=== PATIENT | female | born 1995 | race American Indian/Alaskan Native ===

== ENCOUNTER 2016-12-20 00:54 | Emergency (ER) | payer MEDICAID, OTHER ==
[2016-12-20] MEDS ORDERED: Albuterol/Ipratropium 3.0-0.5 MG/3 ML Neb Soln NEB ONE (01:16)
--- NOTE | 2016-12-20 01:19 | EDM.PDOC ---
ED HPI GENERAL MEDICAL PROBLEM - General Chief Complaint: Respiratory Problem Stated Complaint: CHEST PAIN, DIFFICULTY BREATHING Time Seen by Provider: 12/20/16 01:17 Source of Information: Reports: Patient History Limitations: Reports: No Limitations - History of Present Illness INITIAL COMMENTS - FREE TEXT/NARRATIVE: coughing since last week, saw PMD @ clinic given z-tia but not chest hurts to cough & deep breath. denies asthma. - Related Data Allergies Allergy/AdvReac Type Severity Reaction Status Date / Time diphenhydramine HCl Allergy Cannot Verified 05/07/16 03:07 [From Benadryl] Remember Penicillins Allergy Shortness Verified 05/07/16 03:07 of Breath Home Meds: Home Meds Ferrous Sulfate 325 mg PO TID 04/12/16 [History] Vit W-Ca,Fe,FA(<1 mg) [ Vitamins] 1 each PO DAILY 04/12/16 [ History] Past Medical History - Past Health History Medical/Surgical History: Denies Medical/Surgical History Genitourinary History: Reports: Other (See Below) Other Genitourinary History: UTI in [facility] SPECIALIST History: Reports: , Spontaneous Neurological History: Reports: None Psychiatric History: Reports: Addiction, Anxiety, Depression, Emotional Problems , Suicidal Ideation Endocrine/Metabolic History: Reports: Other (See Below) Other Endocrine/Metabolic History: abnormal TSH in Hematologic History: Reports: Anemia Immunologic History: Reports: None Oncologic (Cancer) History: Reports: None Dermatologic History: Reports: None - Infectious Disease History Infectious Disease History: Reports: Chicken Pox - Past Surgical History Female Surgical History: Reports: D&C Social & Family History - Family History Family Medical History: Noncontributory - Tobacco Use Smoking Status *Q: Never Smoker Second Hand Smoke Exposure: No - Caffeine Use Caffeine Use: Reports: Soda - Alcohol Use Days Per Week of Alcohol Use: 0 Number of Drinks Per Day: 1 Total Drinks Per Week: 0 - Recreational Drug Use Recreational Drug Use: No Recreational Drug Type: Reports: Marijuana/Hashish Recreational Drug Use Frequency: Rarely - Living Situation & Occupation Living situation: Reports: with Family Occupation: Employed ED ROS GENERAL - Review of Systems Review Of Systems: ROS reveals no pertinent complaints other than HPI. ED EXAM, GENERAL - Physical Exam Exam: See Below Exam Limited By: No Limitations General Appearance: Alert, WD/WN, Mild Distress, Other (distraught, episodic cough spasm) Ears: Hearing Grossly Normal Throat/Mouth: Normal Voice, No Airway Compromise Head: Atraumatic Neck: Non-Tender, Full Range of Motion Respiratory/Chest: No Respiratory Distress, No Accessory Muscle Use, Rhonchi, Wheezing. No: Retractions, Splinting Cardiovascular: Regular Rate, Rhythm GI/Abdominal: Soft, Non-Tender Neurological: Alert, Oriented, Normal Cognition, Normal Gait, No Motor/Sensory Deficits Psychiatric: Flat Affect Skin Exam: Warm, Dry Lymphatic: No Adenopathy Course - Vital Signs Last Recorded V/S: Last Vital Signs Temp 36.4 C 12/20/16 01:13 Pulse 85 12/20/16 01:13 Resp 16 12/20/16 01:13 BP 120/68 12/20/16 01:13 Pulse Ox 99 12/20/16 01:13 - Orders/Labs/Meds Orders: Active Orders 24 hr Category Date Time Status RT Aerosol Therapy [RC] ASDIRECTED Care 12/20/16 01:16 Active Meds: Medications Discontinued Medications Generic Name Dose Route Start Last Admin Trade Name Freq PRN Reason Stop Dose Admin Albuterol/Ipratropium 3 ml 12/20/16 01:16 12/20/16 01:23 Duoneb 3.0-0.5 Mg/3 Ml NEB 12/20/16 01:17 3 ml ONETIME ONE Administration - Re-Assessments/Exams Free Text/Narrative Re-Assessment/Exam: 12/20/16 02:07 s/p duoneb=much better. Departure - Departure Time of Disposition: 02:07 Disposition: Home, Self-Care 01 Condition: Good Clinical Impression: Bronchospasm with bronchitis, acute - Discharge Information Instructions: Bronchospasm, Adult, [id number] Forms: ED Department Discharge Additional Instructions: 1) use neb treatment 3 times daily for wheezing 2) drink lots of liquids 3) don't sleep flat at night 4) follow up at clinic or recheck if there is any gale eor concern rx given; albuterol 2.5mg solution tid prn wheezing x 1box - My Orders Last 24 Hours: My Active Orders 12/20/16 01:16 RT Aerosol Therapy [RC] ASDIRECTED - Assessment/Plan Last 24 Hours: My Active Orders 12/20/16 01:16 RT Aerosol Therapy [RC] ASDIRECTED
[2016-12-20 01:25] VITALS: BP 120/68
[2016-12-20] MEDS ORDERED: Albuterol 0.083% 2.5 MG/3 ML Neb Soln ONE (02:15)
[2016-12-20] MEDS ORDERED: Albuterol 0.083% 2.5 MG/3 ML Neb Soln INH ONE (02:15)
== END 2016-12-20 02:29 | disposition home or self-care (01) ==
LOC: DL.ED 00:54
DX: J20.9 Acute bronchitis, unspecified (principal); D64.9 Anemia, unspecified; Z88.0 Allergy status to penicillin; Z88.8 Allergy status to other drugs, medicaments and biological substances; Z79.899 Other long term (current) drug therapy
CPT/HCPCS: 94640; 99283; J7620-GY

== ENCOUNTER 2017-04-14 19:07 | Observation (INO) | payer MEDICAID, OTHER ==
[2017-04-14] MEDS ORDERED: Acetaminophen 325 MG Tab PO PRN (20:48)
[2017-04-14] MEDS ORDERED: Ondansetron 4 MG/2 ML SDV IVPUSH PRN (20:48)
[2017-04-14] MEDS ORDERED: Sodium Chloride 0.9% 10 ML Syringe FLUSH PRN (20:48)
[2017-04-14] MEDS ORDERED: hydrOXYzine HCl 25 MG Tab PO ONE (20:51)
[2017-04-14] MEDS ORDERED: Betamethasone Acetate/Betamethasone Sod Phosphate 30 MG/5 ML MDV IM SCH (21:00)
[2017-04-14] MEDS ORDERED: Sodium Chloride 0.9% 1,000 ML IV SCH (21:00)
--- NOTE | 2017-04-14 21:01 | PCM.LDHP ---
L&D History of Present Illness - General Date of Service: 04/14/17 Admit Problem/Dx: Patient Status Order with Admit Dx/Problem 04/14/17 20:48 Patient Status [ADT] Routine Admission Diagnosis/Problem Admission Diagnosis/Problem Source of Information: Patient History Limitations: Reports: No Limitations - History of Present Illness Introduction:: 21-year-old at 31w3d presents to L&D by ambulance for vomiting and contractions every 7 minutes. She was feeling well until today. No fevers or chills. No diarrhea. She had an episode of emesis when picked up by EMS and again since admission. She complains of abdominal pain and states that the bands for TOCO and FHT hurt her abdomen. FHT has been reassuring. TOCO shows rare contractions with irritability. - Related Data Allergies/Adverse Reactions: Allergies Allergy/AdvReac Type Severity Reaction Status Date / Time diphenhydramine HCl Allergy Cannot Verified 05/07/16 03:07 [From Benadryl] Remember Penicillins Allergy Shortness Verified 05/07/16 03:07 of Breath Home Medications: Home Meds Ferrous Sulfate 325 mg PO TID 04/12/16 [History] Vit W-Ca,Fe,FA(<1 mg) [ Vitamins] 1 each PO DAILY 04/12/16 [ History] Past Medical History - Past Health History Medical/Surgical History: Denies Medical/Surgical History Genitourinary History: Reports: Other (See Below) Other Genitourinary History: UTI in [facility] ATT[facility] History: Reports: , Spontaneous Neurological History: Reports: None Psychiatric History: Reports: Addiction, Anxiety, Depression, Emotional Problems , Suicidal Ideation Endocrine/Metabolic History: Reports: Other (See Below) Other Endocrine/Metabolic History: abnormal TSH in Hematologic History: Reports: Anemia Immunologic History: Reports: None Oncologic (Cancer) History: Reports: None Dermatologic History: Reports: None - Infectious Disease History Infectious Disease History: Reports: Chicken Pox - Past Surgical History Female Surgical History: Reports: D&C Social & Family History - Family History Family Medical History: Noncontributory - Tobacco Use Smoking Status *Q: Never Smoker Second Hand Smoke Exposure: No - Caffeine Use Caffeine Use: Reports: Soda - Alcohol Use Days Per Week of Alcohol Use: 0 Number of Drinks Per Day: 1 Total Drinks Per Week: 0 - Recreational Drug Use Recreational Drug Use: No Recreational Drug Type: Reports: Marijuana/Hashish Recreational Drug Use Frequency: Rarely - Living Situation & Occupation Living situation: Reports: with Family Occupation: Employed H&P Review of Systems - Review of Systems: Review Of Systems: See Below General: Reports: Weakness HEENT: Reports: No Symptoms Pulmonary: Reports: No Symptoms Cardiovascular: Reports: No Symptoms Gastrointestinal: Reports: Nausea, Vomiting Genitourinary: Reports: No Symptoms Musculoskeletal: Reports: No Symptoms Skin: Reports: No Symptoms Psychiatric: Reports: No Symptoms L&D Exam - Exam Exam: See Below - OB Specific Contraction Intensity: Irritability (Rare contraction (3 in 2 hours)) Movement: Active Heart Tones: Present Heart Tones per Min: 135 Heart Rate (FHR) Variability: Moderate (6-25 bmp) Presentation: Vertex - Meneses Score Meneses Score Cervix Position: Posterior Meneses Score Consistency: Soft Meneses Score Effacement: 51-70% Meneses Score Dilation: 1-2 cm Meneses Score Infant's Station: -2 Meneses Score Total: 6 - Exam General: Alert, Oriented Lungs: Clear to Auscultation, Normal Respiratory Effort Cardiovascular: Regular Rate, Regular Rhythm GI/Abdominal Exam: Normal Bowel Sounds, Tender (Diffuse tenderness). No: Guarding, Rigid, Rebound Genitourinary: Normal external exam, Other (FFN obtained) - Patient Data Lab Results Last 24 hrs: Laboratory Results - last 24 hr 04/14/17 04/14/17 Range/Units 19:25 19:50 Urine Color Dark yellow (YELLOW) Urine Appearance Turbid (CLEAR) Urine pH 7.5 (5.0-9.0) Ur Specific [place] 1.020 (1.005-1.030) Urine Protein Negative (NEGATIVE) Urine Glucose (UA) Negative (NEGATIVE) Urine Ketones 40 H (NEGATIVE) Urine Occult Blood Negative (NEGATIVE) Urine Nitrite Negative (NEGATIVE) Urine Bilirubin Negative (NEGATIVE) Urine Urobilinogen 0.2 (0.2-1.0) mg/dL Ur Leukocyte Esterase Negative (NEGATIVE) Urine RBC 0-5 /HPF Urine WBC 0-5 (0-5/HPF) /HPF Ur Epithelial Cells Few /HPF Amorphous Sediment Many H (0/HPF) /HPF Urine Bacteria Few (0-FEW/HPF) /HPF Membrane Rupture Negative (NEG) Rowdy Results Last 24 hrs: Microbiology 10/17/17 19:25 Wet Prep - Final Vagina - Problem List (1) SNOMED Code(s): 79674961 ICD Code: Z34.90 - ENCNTR FOR SUPRVSN OF NORMAL , UNSP, UNSP TRIMESTER Status: Acute Current Visit: Yes (2) Abdominal pain affecting SNOMED Code(s): 322023948 ICD Code: O26.899 - OTH RELATED CONDITIONS, UNSPECIFIED TRIMESTER; R10.9 - UNSPECIFIED ABDOMINAL PAIN Status: Acute Current Visit: Yes Problem List Initiated/Reviewed/Updated: Yes Orders Last 24hrs: Active Orders 24 hr Category Date Time Status Patient Status [ADT] Routine ADT 04/14/17 20:48 Ordered Monitoring [RC] INTERMITTENT Care 04/14/17 20:48 Ordered OB Check [OM.PC] Click To Edit Care 04/14/17 19:19 Ordered Peripheral IV Care [RC] . DIRECTED Care 04/14/17 20:51 Ordered Up ad Sylvai [RC] ASDIRECTED Care 04/14/17 20:49 Ordered Vital Signs [RC] PER UNIT ROUTINE Care 04/14/17 20:48 Ordered Regular Diet [DIET] Diet 04/15/17 Breakfast Ordered FIBRONECTIN Stat Lab 04/14/17 20:52 Ordered Acetaminophen [Tylenol] Med 04/14/17 20:48 Ordered 650 mg PO Q4H PRN Betamet Acet/Betamet Na Phos [Celestone Soluspan 6 MG/ Med 04/14/17 21:00 Ordered ML] 12 mg IM DAILY Ondansetron [Zofran] Med 04/14/17 20:48 Ordered 4 mg IVPUSH Q4H PRN Sodium Chloride 0.9% @ 125 MLS/HR (1000ml) Med 04/14/17 21:00 Ordered Sodium Chloride 0.9% [Normal Saline] 1,000 ml IV ASDIRECTED Sodium Chloride 0.9% [Saline Flush] Med 04/14/17 20:48 Ordered 10 ml FLUSH ASDIRECTED PRN hydrOXYzine HCl [Atarax] Med 04/14/17 20:51 Once 25 mg PO ONETIME ONE Heart Monitor External [WOMSER] Per Unit Routine Oth 04/14/17 19:19 Ordered Peripheral IV Insertion Adult [OM.PC] Urgent Oth 04/14/17 20:48 Ordered Resuscitation Status Routine Resus Stat 04/14/17 20:48 Ordered Medication Orders Acetaminophen (Tylenol) 650 mg PO Q4H PRN PRN Reason: Pain (mild 1-3) Betamethasone Acet/Betameth SodPhos (Celestone Soluspan 6 Mg/Ml) 12 mg IM DAILY LILLIAN Stop: 04/15/17 09:01 Hydroxyzine HCl (Atarax) 25 mg PO ONETIME ONE Stop: 04/14/17 20:52 Sodium Chloride (Normal Saline) 1,000 mls @ 125 mls/hr IV ASDIRECTED LILLIAN Ondansetron HCl (Zofran) 4 mg IVPUSH Q4H PRN PRN Reason: Nausea/Vomiting Sodium Chloride (Saline Flush) 10 ml FLUSH ASDIRECTED PRN PRN Reason: Keep Vein Open Assessment/Plan Comment:: As patient noted to be 2.5 cm dilated on cervical exam, will admit for observation and monitor overnight. Will given IV fluids as patient has significant ketones in her urine. Will also give a dose of Vistaril to help her rest. FFN was collected and is pending. Her symptoms could be caused by viral gastroenteritis; however, her cervical dilation does warrant observation for labor. She will also receive a dose of betamethasone now and another tomorrow for lung maturity. Will reassess cervix later tonight for change. If cervical change is noted, we will start magnesium for neuroprotection. Dr. Carmichael is the patient's OB provider and can assess her tomorrow morning if she does not progress to labor. Kaylie Ahuja MD
[2017-04-14] MEDS ORDERED: Magnesium Sulfate/Water 20 GM/500 ML BAG IV SCH (23:00)
[2017-04-14] MEDS ORDERED: Magnesium Sulfate/Water 2 GM in Premix Bag 1 BAG IV ONE (23:02)
[2017-04-14] MEDS ORDERED: Magnesium Sulfate/Water 4 GM in Premix Bag 1 BAG IV ONE (23:02)
--- NOTE | 2017-04-14 23:17 | PCM.DCSUM1 ---
Discharge Summary - Hospital Course Free Text/Narrative:: 21-year-old admitted for abdominal pain and possible contractions. She has been monitored on the floor for about 4 hours. Over 2 hours, her cervix has dilated from 2.5 to 3+ and has become more anterior. She also continues to have abdominal pain. Contractions are not tracing well on TOCO - Discharge Data Discharge Date: 04/14/17 Discharge Disposition: DC/Tfer to Acute Hospital 02 Condition: Good - Discharge Diagnosis/Problem(s) (1) SNOMED Code(s): 98682644 ICD Code: Z34.90 - ENCNTR FOR SUPRVSN OF NORMAL , UNSP, UNSP TRIMESTER Status: Acute Current Visit: Yes Qualifiers: Weeks of gestation: 31 weeks Qualified Code(s): Z3A.31 - 31 weeks gestation of (2) Abdominal pain affecting SNOMED Code(s): 064667113 ICD Code: O26.899 - OTH RELATED CONDITIONS, UNSPECIFIED TRIMESTER; R10.9 - UNSPECIFIED ABDOMINAL PAIN Status: Acute Current Visit: Yes - Discharge Plan Home Medications: Home Meds Ferrous Sulfate 325 mg PO TID 04/12/16 [History] Vit W-Ca,Fe,FA(<1 mg) [ Vitamins] 1 each PO DAILY 04/12/16 [ History] - Discharge Summary/Plan Comment DC Time >30 min.: Yes Discharge Summary/Plan Comment: Due to early labor, patient will be transferred to [facility] in [place]. Accepting physician will be Dr. Mckinley. She has received 1 dose of betamethasone. She is currently receiving a 4 gram loading dose of magnesium for neuroprotection and will be started on 1 gram/hour after completion of the bolus. Patient was advised that if her labor stops, she will likely be discharged home in the next few days; however, there is a chance she could deliver, which is why transfer is necessary. Patient and her significant other voiced their understanding, and all questions were answered. Kaylie Ahuja MD - General Info Date of Service: 04/14/17 Subjective Update: 21-year-old admitted for abdominal pain and possible contractions. She has been monitored on the floor for about 4 hours. Over 2 hours, her cervix has dilated from 2.5 to 3+ and has become more anterior. She also continues to have abdominal pain. Contractions are not tracing well on TOCO. FFN was positive. FHT has been reactive. Urinalysis and wet prep were negative. Amnisure was negative. Patient has been receiving IV fluids at 125 ml/hr since 2099. - Review of Systems General: Reports: Fatigue HEENT: Reports: No Symptoms Pulmonary: Reports: No Symptoms Cardiovascular: Reports: No Symptoms Gastrointestinal: Reports: Abdominal Pain, Nausea Genitourinary: Reports: No Symptoms Musculoskeletal: Reports: No Symptoms Skin: Reports: No Symptoms - Patient Data Vitals - Most Recent: Last Vital Signs Temp 36.2 C 04/14/17 19:12 Pulse 69 04/14/17 19:12 Resp 20 04/14/17 19:12 BP 105/61 04/14/17 19:12 Pulse Ox Weight - Most Recent: 91.172 kg Lab Results - Last 24 hrs: Laboratory Results - last 24 hr 04/14/17 04/14/17 04/14/17 Range/Units 19:25 19:50 20:45 Urine Color Dark yellow (YELLOW) Urine Appearance Turbid (CLEAR) Urine pH 7.5 (5.0-9.0) Ur Specific [place] 1.020 (1.005-1.030) Urine Protein Negative (NEGATIVE) Urine Glucose (UA) Negative (NEGATIVE) Urine Ketones 40 H (NEGATIVE) Urine Occult Blood Negative (NEGATIVE) Urine Nitrite Negative (NEGATIVE) Urine Bilirubin Negative (NEGATIVE) Urine Urobilinogen 0.2 (0.2-1.0) mg/dL Ur Leukocyte Esterase Negative (NEGATIVE) Urine RBC 0-5 /HPF Urine WBC 0-5 (0-5/HPF) /HPF Ur Epithelial Cells Few /HPF Amorphous Sediment Many H (0/HPF) /HPF Urine Bacteria Few (0-FEW/HPF) /HPF Membrane Rupture Negative (NEG) Fibronectin Positive REKHA Results - Last 24 hrs: Microbiology 04/14/17 19:25 Wet Prep - Final Vagina Med Orders - Current: Current Medications Acetaminophen (Tylenol) 650 mg PO Q4H PRN PRN Reason: Pain (mild 1-3) Last Admin: 04/14/17 21:26 Dose: 650 mg Betamethasone Acet/Betameth SodPhos (Celestone Soluspan 6 Mg/Ml) 12 mg IM DAILY @2100 LILLIAN Stop: 04/15/17 21:01 Last Admin: 04/14/17 21:27 Dose: 12 mg Sodium Chloride (Normal Saline) 1,000 mls @ 125 mls/hr IV ASDIRECTED LILLIAN Last Admin: 04/14/17 21:36 Dose: 125 mls/hr Magnesium Sulfate 4 gm/ Premix 100 mls @ 200 mls/hr IV ONETIME ONE Stop: 04/14/17 23:31 Magnesium Sulfate (Magnesium Sulfate 20 Gm In Water 500 Ml) 20 gm in 500 mls @ 25 mls/hr IV .Q20H LILLIAN Ondansetron HCl (Zofran) 4 mg IVPUSH Q4H PRN PRN Reason: Nausea/Vomiting Sodium Chloride (Saline Flush) 10 ml FLUSH ASDIRECTED PRN PRN Reason: Keep Vein Open Discontinued Medications Hydroxyzine HCl (Atarax) 25 mg PO ONETIME ONE Stop: 04/14/17 20:52 Last Admin: 04/14/17 21:27 Dose: 25 mg - Exam General: Reports: Alert, Oriented, Mild Distress (More due to emotions than physical distress) Lungs: Reports: Clear to Auscultation, Normal Respiratory Effort Cardiovascular: Reports: Regular Rate, Regular Rhythm, No Murmurs Extremities: No Pedal Edema Skin: Reports: Warm, Dry, Intact *Q Meaningful Use (DIS) - VTE *Q VTE Criteria *Q: - Stroke *Q Stroke Criteria *Q: - AMI *Q AMI Criteria *Q:
[2017-04-15 00:09] VITALS: BP 101/58
== END 2017-04-14 23:46 ==
LOC: DL.OBCHECK 19:07 → DL.OB 20:48
PROVIDERS: ADMIT Family Medicine; ATTEND Family Medicine
DX: O26.899 Other specified pregnancy related conditions, unspecified trimester (principal); F41.9 Anxiety disorder, unspecified; F32.9 Major depressive disorder, single episode, unspecified; Z3A.31 31 weeks gestation of pregnancy; Z79.899 Other long term (current) drug therapy; Z88.0 Allergy status to penicillin; Z88.8 Allergy status to other drugs, medicaments and biological substances; Z98.890 Other specified postprocedural states
CPT/HCPCS: 81001; 82731; 84112; 87210; A9270; J0702; J3475; J7030; 96365; 96372; G0378

== ENCOUNTER 2017-05-11 05:35 | Inpatient (IN) | payer MEDICAID, OTHER ==
[2017-05-11] MEDS ORDERED: Methylergonovine 0.2 MG/1 ML Amp IM PRN (06:16)
[2017-05-11] MEDS ORDERED: Acetaminophen 325 MG Tab PO PRN (06:16)
[2017-05-11] MEDS ORDERED: Lactated Ringers 500 ML IV ONE (06:16)
[2017-05-11] MEDS ORDERED: Carboprost Tromethamine 250 MCG/1 ML Amp IM PRN (06:16)
[2017-05-11] MEDS ORDERED: Sodium Chloride 0.9% 10 ML Syringe FLUSH PRN ×2 (06:16→18:41)
[2017-05-11] MEDS ORDERED: Lidocaine 1% 30 ML SDV INJECT PRN (06:16)
[2017-05-11] MEDS ORDERED: Misoprostol 400 MCG (4 X 100 MCG TAB) RECTAL PRN (06:16)
[2017-05-11] MEDS: Lactated Ringers 1,000 ML IV SCH ×4 (06:34→16:58)
[2017-05-11] MEDS ORDERED: fentaNYL 100 MCG/2 ML SDV IVPUSH ONE ×2 (06:55→10:30)
--- NOTE | 2017-05-11 10:00 | PN ---
DATE: 05/11/2017 SUBJECTIVE: The patient has been requesting something for pain. Her pain has been increasing. She is breathing through her contractions. OBJECTIVE: heart tones in the 120s range, felt to be reassuring and reactive. Tocometer reveals contractions every 4 minutes. Vaginal exam reveals her to be 4.5 cm, 75% effaced, -1 station, vertex suspected, bag of water felt. ASSESSMENT AND PLAN: Intrauterine at 35 and 2/7 weeks with active labor. Not a transfer candidate. Requesting something for pain. We will give her fentanyl at this point in time and then consider intrathecal thereafter. I did discuss with the patient making call to the NICU following baby, after baby is delivered and if need be transfer. I did discuss the case with Dr. Holman in [place], and we will follow closely. The patient understands and agrees with the above treatment plan. [facility] /[id number]
--- NOTE | 2017-05-11 10:03 | HP ---
PATIENT IDENTIFICATION: Nima Yao is a 21-year-old, G3, P1-0-1-1, intrauterine 35 and 2/7 weeks by 9 and 6/7 week ultrasound that presents with contractions. HISTORY OF PRESENT ILLNESS: The patient states that contractions started about 1:30 in the morning on date of admission. Increasing in frequency and intensity to the point that they are coming every 2 to 5 minutes per patient report, rated 10/10, felt in the lower abdomen, radiating to the back, and getting worse over time. Tylenol did not seem to help with this pain. Associated with this was some vaginal leaking that she states started around 2 a.m., described as mucoid- type discharge. No spotting or bleeding associated with this. She has had good movement. To put this in context, she was in [facility] in March for threatened premature labor. She was not found to be in labor. GBS was done at that point in time which was within 5 weeks and it was negative. Records were called for, reviewed as below, and supplemented by the patient history. OBSTETRIC HISTORY: 1. On 05/25/2016; 40 and 4/7 weeks, delivered female, spontaneous vaginal delivery, weighing 3790 g. 2. Spontaneous AB 07/05/2015, at 10 and 4/7 weeks. ANTEPARTUM LABS: ABO blood type A positive, negative antibody. Rubella immune. Syphilis antibody is nonreactive. Negative hepatitis B surface antigen, hep C, HIV, GC, and Chlamydia. Wet prep was remarkable for clue cells. One-hour GTT was elevated at 146, three-hour test was negative for gestational diabetes mellitus. She has had a history of hemoglobin 10.6, and she was GBS negative on 04/15/2017. ALLERGIES: Penicillins make her throat close up and swell. She also has a Benadryl allergy with unknown reaction. MEDICATIONS: vitamins. PAST MEDICAL/PAST SURGICAL HISTORY: Remarkable for having a D and C in the past. Being immune to varicella. FAMILY HISTORY: Mother had cirrhosis. Negative family history of asthma, arrhythmia, seizures, heart disease, or sudden . SOCIAL HISTORY: Lives in [place] with grandpa and daughter. Denies tobacco, alcohol, or drug use. REVIEW OF SYSTEMS: The patient denies any fever, chills, sweats. She stated that at certain positions sometimes she has to breathe harder with her contractions. Otherwise review of systems fully reviewed and felt to be noncontributory. OBJECTIVE: Appearance: Female, appears her stated age, acting appropriate for age, breathing through contractions, clutching her abdomen in pain, pain seems to be worse at times, but intermittently she has been breathing fast and complaining of pain during this time period. Vital Signs: Reveal a blood pressure of 130/62, heart rate 74, temperature 96.8. Lungs: Clear to auscultation bilaterally. No increased work of breathing. Heart: S1, S2. Regular rate and rhythm. Abdomen: Gravid, Yusuf's indeterminate. Nontender, nondistended. Bowel sounds positive. No other organomegaly, pulsatile masses, or obvious hernias. No rebound, rigidity, or guarding. Suprapubic area with deep palpation, she does describe occasional pain over this area, but is inconsistent with exam. : Sterile speculum exam done. Negative for Nitrazine, pooling and ferning is pending. Wet prep, also done. Vaginal exam thereafter revealed her to be 4+ cm, 75% effaced, -2 station, vertex suspected. heart tones currently baseline around the 120s. Tocometer reveals contractions, 5 to 6 minutes apart currently. ASSESSMENT: 1. Intrauterine at 35 and 2/7 weeks by 9 and 6/7 week ultrasound. 2. Active labor. 3. Not a transfer candidate based on her advancing cervical dilation, contractions, and amount of pain that she is. 4. Group B Streptococcus negative on 04/15/2017, would not need prophylaxis. 5. Penicillin allergy causes her throat to swell. 6. Impaired glucose tolerance. 7. G3, P1-0-1-1. PLAN: I did discuss with patient with her current contractions, advancing cervical dilation, that we will admit her. Start IV fluids. Do her labs for admission and follow clinically and closely. Most likely, we will not intervene at this point in time other than following for maternal and status. I will call the [facility], and I did discuss this with the patient that she is not a transfer candidate and her infant may need to be transferred to higher level care and will heed NICU's advice. The patient understands and agrees the above treatment plan. MOD /[id number]
--- NOTE | 2017-05-11 10:06 | OBOUT ---
DATE: 05/11/2017 DATE AND TIME OF NST: Date: 05/11/2017. Time: 6:45 to 6:58. REASON FOR NST: 1. Intrauterine 35 and 2/7 weeks by approximately 9 week ultrasound. 2. labor. 3. Not a transfer candidate. 4. Advanced cervical dilation. NST INTERPRETATION: During this time period, heart tone baseline is approximately 120 and there are at least two 15 x 15 beat per minute accelerations, making this strip reactive. It is also noted to be reassuring. Tocometer reveals potential of 2 contractions felt by patient. ASSESSMENT: 1. Nonstress test, reactive and reassuring. 2. Tocometer with contractions. PLAN: We will continue to follow closely at this point in time. Please see other dictations for further details. MODL /[id number]
[2017-05-11] MEDS ORDERED: fentaNYL 100 MCG/2 ML SDV ONE ×2 (11:35→18:08)
[2017-05-11] MEDS: Ondansetron 4 MG/2 ML SDV IV PRN ×2 (11:50→18:02)
--- NOTE | 2017-05-11 12:10 | PCM.SN ---
- Free Text/Narrative Note: Intrathecal, sitting position ,sterile and drape. 1 % lidocaine w bicarb for skinwheal to L2 L3 interspace, introducer, 24 ga pencan x 1. Pos CSF, neg heme, neg parasthesia. 1:1000 epi wash, 20 mcg pf sufenta, 30 mcg pf fentanyl, 0.2 ml pf ns and 6 mg of 0.75 % pf bupivacaine injected after CSF aspiration. Pt to L lateral side. Procedure time 1145 to 1210
--- NOTE | 2017-05-11 12:48 | PN ---
DATE: 05/11/2017 SUBJECTIVE: The patient's contractions continued. She received 100 mcg of fentanyl within the last hour, felt in the lower abdomen, breathing through them, writhing in pain when she has them. OBJECTIVE: heart tones in the 120s. Tocometer reveals contractions 1 reading as close as every 4 minutes currently. Vaginal exam reveals her to be 5 cm, 85% effaced, -1 station with bulging bag of water. Vertex suspected. ASSESSMENT/PLAN: Intrauterine at 35 and 2/7 weeks by 9 and 6/7 weeks' ultrasound in active labor. Not a transfer candidate due to her advancing cervical dilation, group B Streptococcus negative status with impaired glucose tolerance in -0-1-1. Did review her chart, she did receive some steroids when she was in [place] last month for her labor. We will continue to follow clinically and closely at this point in time. I did discuss with the patient close consultation with NICU if need be and we will proceed to follow maternal status very closely. She understands and agrees with the above treatment. [facility] /[id number]
[2017-05-11] MEDS ORDERED: Oxytocin/Normal Saline 30 UNIT/500 ML BAG IV SCH (13:30)
--- NOTE | 2017-05-11 14:00 | PN ---
DATE: 05/11/2017 SUBJECTIVE: The patient is comfortable, status post intrathecal. OBJECTIVE: heart tones are difficult to read at times, unsure if there is decelerations or not based on movement and patient moving. Tocometer, difficulty reading contractions as well. heart tones when detected are in the 115 to 120s range. Vaginal exam reveals her to be 5+ cm , 75% to 85% effaced, -1 station with bulging bag of water which was artificially ruptured after discussion with the patient to allow for FSE placement which after copious amounts of clear vaginal fluid leaking, FSE was applied and used. ASSESSMENT AND PLAN: Intrauterine at 35 and 2/7 weeks by 9 and 6/7 weeks ultrasound in active labor, not a transfer candidate, GBS negative status with impaired glucose tolerance, and a -0-1-1 with baby receiving steroids last month, now in active labor with concerns with heart tone tracing, underwent artificial rupture membranes and FSE placement, and we will follow clinically and closely. I did discuss with the patient that we will follow status, and after baby is born to determine NICU need based on current status, but if things change, may need them sooner. The patient understands and agrees with the above treatment and plan. [facility] /[id number]
--- NOTE | 2017-05-11 18:28 | PCM.SN ---
- Free Text/Narrative Note: Intrathecal, sitting position ,sterile and drape. 1 % lidocaine w bicarb for skinwheal to L2 L3 interspace, introducer, 24 ga pencan x 1. Pos CSF, neg heme, neg parasthesia. 1:1000 epi wash, 20 mcg pf sufenta, 30 mcg pf fentanyl, 0.2 ml pf ns and 6 mg of 0.75 % pf bupivacaine injected after CSF aspiration. Pt to L lateral side. Procedure time 1810 to 1835
[2017-05-11] MEDS ORDERED: Benzocaine/Menthol 20%-0.5% Spray 56 GM Canister TOP PRN (18:41)
[2017-05-11] MEDS ORDERED: Oxytocin 10 Units/1 ML SDV IM PRN (18:41)
[2017-05-11] MEDS ORDERED: Simethicone 80 MG Tab.Chew PO PRN (18:41)
[2017-05-11] MEDS ORDERED: Zolpidem 5 MG Tab PO PRN (18:41)
[2017-05-11] MEDS ORDERED: Docusate Sodium 100 MG Cap PO PRN (18:41)
[2017-05-11] MEDS: Ibuprofen 800 MG Tab PO PRN (22:05)
[2017-05-12] MEDS: Ibuprofen 800 MG Tab PO PRN (08:13)
--- NOTE | 2017-05-12 08:35 | DEL ---
DATE: 05/11/2017 PREOPERATIVE DIAGNOSES: 1. Intrauterine at 35 and 2/7 weeks confirmed by 9 and 6/7 weeks' ultrasound. 2. Active labor upon admit. 3. Not a transfer candidate. 4. Group B Streptococcus negative in March 2017. 5. Penicillin allergy causes throat swelling. 6. Impaired glucose tolerance. 7. G3, P1-0-1-1. 8. The patient did receive steroids for threatened premature labor last month. POSTOPERATIVE DIAGNOSES: 1. Intrauterine at 35 and 2/7 weeks confirmed by 9 and 6/7 weeks' ultrasound, delivered. 2. Active labor upon admit. 3. Not a transfer candidate. 4. Group B Streptococcus negative in March 2017. 5. Penicillin allergy causes throat swelling. 6. Impaired glucose tolerance. 7. G3, P1-0-1-1. 8. The patient did receive steroids for threatened premature labor last month. 9. Nuchal cord x1 reduced bluntly with delivery. 10. hemorrhage with an EBL of 500 mL. PROCEDURE PERFORMED: 1. NST. 2. FSE/AROM Pitocin augmentation. 3. Spontaneous vaginal delivery on 05/11/[address] Carmichael. ANESTHESIA/ANALGESIA: The patient did receive two intrathecals in the first stage of labor. ESTIMATED BLOOD LOSS: 500 mL. FINDINGS: Male, scores and weight pending. SUMMARY OF EVENTS: The patient is a 21-year-old, G3, P-1-0-1-1 intrauterine at 35 and 2/7 weeks by 9 and 6/7 week ultrasound, who presents in active labor with advancing cervical dilation, not a transfer candidate. She was GBS negative last month. She was admitted, underwent the above procedures. Did receive an intrathecal in the first stage of labor. Required FSE for further monitoring of the baby with artificial rupture of membranes done at that time. She received a second intrathecal in the first stage of labor. She was subsequently found to be nearly complete. I was called to the room, donned in sterile gown and gloves. Evaluated her, she was found to be complete at a +2 station with the next contraction as she had an urge to push. She pushed and vertex was delivered in a CAMPOS presentation. Nuchal cord x1 was noted and reduced bluntly with delivery. Rest of the infant was delivered without difficulty. Mouth and nares were suctioned. Cord was doubly clamped and cut, and was brought over to team. Then, approximately 10 mL cord blood obtained for labs. Placenta was then delivered with gentle cord traction and fundal massage within 5 minutes with a large henriquez of blood thereafter with a 500 mL estimated blood loss. Pitocin was started. Fundal massage ensued and bleeding significantly decreased. Perineum, vagina, and perirectal areas were examined and noted to have bilateral periurethral abrasions, nonbleeding, non repaired after discussion with the patient. Mother and are currently stable at the time of dictation. [facility] /[id number] MOY
[2017-05-12] MEDS ORDERED: Prenatal Multivitamin with Calcium/Folic Acid/Iron Tab PO SCH (09:00)
[2017-05-12] MEDS ORDERED: fentaNYL 100 MCG/2 ML SDV ITHECAL ONE (15:01)
[2017-05-12 20:32] VITALS: BP 106/59
--- NOTE | 2017-05-13 08:22 | DISCH ---
ADMITTING DIAGNOSES: 1. Intrauterine at 35 and 2/7 weeks confirmed by 9 and 6/7 weeks' ultrasound. 2. Active labor. 3. Not a transfer candidate. 4. Group B Streptococcus negative on 04/15/2017. 5. Allergy to penicillin causes throat swelling. 6. Impaired glucose tolerance. 7. G3, P1-0-1-1. 8. The patient received steroids in March 2017 for threatened premature labor. DISCHARGE DIAGNOSIS: 1. Intrauterine at 35 and 2/7 weeks confirmed by 9 and 6/7 weeks' ultrasound, delivered. 2. Active labor. 3. Not a transfer candidate. 4. Group B Streptococcus negative on 04/15/2017. 5. Allergy to penicillin causes throat swelling. 6. Impaired glucose tolerance. 7. G3, P1-0-1-1. 8. The patient received steroids in March 2017 for threatened premature labor. 9. hemorrhage with EBL of 500 mL. 10.Nuchal cord x1, reduced bluntly at delivery. 11.CAMPOS presentation. 12.Anemia acute blood loss, hemoglobin dropping down to lowest at 10.3, with predelivery hemoglobin being 11.4. PROCEDURE PERFORMED: NST, FSE, artificial rupture membranes, spontaneous vaginal delivery, Pitocin augmentation. HISTORY OF PRESENT ILLNESS: Please see H and P. SUMMARY HOSPITAL COURSE: The patient was admitted on the above date with the above diagnosis, had advancing cervical dilation, not felt to be a transfer candidate due to this. She was subsequently admitted, underwent the above procedures. Did require some Pitocin augmentation. She did receive an FSE as there was difficulty determining heart tones with questionable decelerations at times. Subsequently, she received 2 intrathecals in the first stage of labor. She was found to be complete. I was called to the room and went on to have a spontaneous vaginal delivery yielding a male with scores of 7 and 8, weighing 6 pounds 6 ounce (2880 g). Please see delivery note for further details. EBL was 500 mL. day #1, date of discharge, the patient was tolerating p.o., was ambulating, urinating, passing flatus, requesting discharge to be with her who was transferred to the NICU in [place]. PHYSICAL EXAMINATION: Vital Signs: Temperature 98.2, heart rate 64, blood pressure 87/50, prior to this was 116/62, respiratory rate 16. Lungs: Clear to auscultation bilaterally. Heart: S1 and S2. Regular rate and rhythm. Pelvic: Firm uterus at -1 below the umbilicus. Extremities: Trace pedal edema. No calf pain. LABORATORY DATA: Reveal a white cell count 10.2, hemoglobin 10.3, platelets 256. CONDITION ON DISCHARGE COMPARED TO CONDITION ON ADMISSION: Improved. DISCHARGE INSTRUCTIONS: 1. Diet: As tolerated. 2. Activity: No lifting more than 20 pounds. No sit-ups, straining, and pelvic rest for the next 6 weeks with immediate return to fertility discussed with the patient. 3. Reasons to return or go to the emergency room were discussed with the patient in detail including, but not limited to, temperature greater than 100.4; foul-smelling discharge; red or hot breasts or increased vaginal bleeding DISCHARGE MEDICATIONS: 1. [id number] ibuprofen for pain. 2. vitamins x6 weeks. FOLLOWUP: Six weeks . Discussed with the patient waiting till 24 hours after delivery for discharge time and we will follow clinically and closely. I did discuss with her the closest facility is in [place] where she will be going. She has a male partner with her and he will be with her. She understands and agrees with the above treatment plan. [facility] /[id number]
== END 2017-05-12 19:28 | disposition home or self-care (01) | DRG 774 ==
LOC: DL.OBCHECK 05:35 → DL.OB 06:27 → OBSVTOIN 18:28 → DL.MS 05-12 11:53
PROVIDERS: ADMIT Family Medicine; ATTEND Family Medicine
PROC: 10E0XZZ Delivery of Products of Conception, External Approach (ICD-10-PCS; principal; 2017-05-11)
PROC: 10907ZC Drainage of Amniotic Fluid, Therapeutic from Products of Conception, Via Natural or Artificial Opening (ICD-10-PCS; 2017-05-11)
PROC: 00HU33Z Insertion of Infusion Device into Spinal Canal, Percutaneous Approach (ICD-10-PCS; 2017-05-11)
PROC: 3E0R3BZ Introduction of Anesthetic Agent into Spinal Canal, Percutaneous Approach (ICD-10-PCS; 2017-05-11)
DX: O60.12X0 Preterm labor second trimester with preterm delivery second trimester, not applicable or unspecified (principal); O72.1 Other immediate postpartum hemorrhage; Z37.0 Single live birth; Z3A.35 35 weeks gestation of pregnancy; Z88.0 Allergy status to penicillin; O69.81X0 Labor and delivery complicated by cord around neck, without compression, not applicable or unspecified
CPT/HCPCS: 01967; 36415; 59409; 80305; 82274; 85027; 87210; A9270-GY; J2405; J2590; J3010; J7120

== ENCOUNTER 2017-08-06 22:27 | Emergency (ER) | payer MEDICAID, OTHER ==
[2017-08-06 22:33] VITALS: BP 127/79
--- NOTE | 2017-08-06 22:52 | EDM.PDOC ---
ED HPI GENERAL MEDICAL PROBLEM - General Chief Complaint: Lower Extremity Injury/Pain Stated Complaint: needs XRAY ON KNEE [id number] Time Seen by Provider: 08/06/17 22:39 Source of Information: Reports: Patient History Limitations: Reports: No Limitations - History of Present Illness INITIAL COMMENTS - FREE TEXT/NARRATIVE: Pt presents to the ER with c/o pain in the left knee. She states she fell on the ice in front of her home last night. She states she has not been able to ambulate on the leg, and cannot bend or fully straighten the leg. She states the pain is 6/10 at rest, and 9/10 with movement. Patient denies chances of , states her LMP was the end of June. Onset: Sudden Onset Date: 08/05/17 Location: Reports: Lower Extremity, Left Quality: Reports: Throbbing Severity: Moderate Improves with: Reports: Rest Worsens with: Reports: Movement Associated Symptoms: Reports: No Other Symptoms Left Knee Pain Score (Numeric/FACES): 6 - Related Data Allergies Allergy/AdvReac Type Severity Reaction Status Date / Time diphenhydramine HCl Allergy Cannot Verified 08/06/17 22:33 [From Benadryl] Remember Penicillins Allergy Shortness Verified 08/06/17 22:33 of Breath Home Meds: Home Meds . [No Known Home Meds] 08/06/17 [History] Past Medical History - Past Health History Medical/Surgical History: Denies Medical/Surgical History HEENT History: Reports: None Cardiovascular History: Reports: None Respiratory History: Reports: None Gastrointestinal History: Reports: None Genitourinary History: Reports: Pyelonephritis, Other (See Below) Other Genitourinary History: UTI in [employer] History: Reports: , Spontaneous Musculoskeletal History: Reports: None Neurological History: Reports: None Psychiatric History: Reports: Addiction, Anxiety, Depression, Emotional Problems , Suicidal Ideation Endocrine/Metabolic History: Reports: Other (See Below) Other Endocrine/Metabolic History: abnormal TSH in Hematologic History: Reports: Anemia Immunologic History: Reports: None Oncologic (Cancer) History: Reports: None Dermatologic History: Reports: None - Infectious Disease History Infectious Disease History: Reports: None, Influenza - Past Surgical History Head Surgeries/Procedures: Reports: None Female Surgical History: Reports: D&C Social & Family History - Family History Family Medical History: Noncontributory - Tobacco Use Smoking Status *Q: Never Smoker Used Tobacco, but Quit: No Second Hand Smoke Exposure: No - Caffeine Use Caffeine Use: Reports: Coffee, Soda - Alcohol Use Days Per Week of Alcohol Use: 0 Number of Drinks Per Day: 1 Total Drinks Per Week: 0 - Recreational Drug Use Recreational Drug Use: No Recreational Drug Type: Reports: Marijuana/Hashish Recreational Drug Use Frequency: Rarely - Living Situation & Occupation Living situation: Reports: with Family Occupation: Employed Review of Systems - Review of Systems Review Of Systems: ROS reveals no pertinent complaints other than HPI. ED EXAM, GENERAL - Physical Exam Exam: See Below Exam Limited By: No Limitations General Appearance: Alert, WD/WN, No Apparent Distress Eye Exam: Bilateral Eye: EOMI, Normal Inspection, PERRL Ears: Normal External Exam, Hearing Grossly Normal Nose: Normal Inspection Throat/Mouth: Normal Inspection, Normal Voice, No Airway Compromise Head: Facial Swelling, Facial Tenderness, Other (Swelling and bruising to the left side of the face/forehead and cheek. Pt states this is from a different incident than the fall on the ice and chooses not to elaborate. ) Neck: Normal Inspection, Supple, Non-Tender, Full Range of Motion Respiratory/Chest: No Respiratory Distress, Lungs Clear, Normal Breath Sounds, No Accessory Muscle Use, Chest Non-Tender Cardiovascular: Normal Peripheral Pulses, Regular Rate, Rhythm, No Edema, No Gallop, No JVD, No Murmur, No Rub Peripheral Pulses: 2+: Radial (L), Radial (R), Dorsalis Pedis (L), Dorsalis Pedis (R) GI/Abdominal: Normal Bowel Sounds, Soft, Non-Tender, No Organomegaly, No Distention, No Abnormal Bruit, No Mass (Female) Exam: Deferred Rectal (Female) Exam: Deferred Back Exam: Normal Inspection, Full Range of Motion, NT Extremities: Normal Inspection, No Pedal Edema, Normal Capillary Refill, Joint Swelling (left knee), Leg Pain (left knee), Limited Range of Motion Neurological: Alert, Oriented, Normal Cognition, Normal Reflexes, No Motor/ Sensory Deficits Psychiatric: Normal Affect, Normal Mood Skin Exam: Warm, Dry, Intact, Normal Color, No Rash Lymphatic: No Adenopathy Course - Vital Signs Last Recorded V/S: Last Vital Signs Temp 97.2 F 08/06/17 22:29 Pulse 78 08/06/17 22:29 Resp 18 08/06/17 22:29 BP 127/79 08/06/17 22:29 Pulse Ox 99 08/06/17 22:29 - Radiology Interpretation Free Text/Narrative:: Left knee xray: See rad report Departure - Departure Time of Disposition: 23:22 Disposition: Home, Self-Care 01 Condition: Fair Clinical Impression: Sprain of knee - Discharge Information Instructions: Knee Sprain, [id number], Knee Immobilizer, [id number] Forms: ED Department Discharge Additional Instructions: May ice the area as tolerated Tylenol or ibuprofen for pain May use immobilizer as tolerated until improved Follow up with your primary care facility for possible need for MRI.
== END 2017-08-06 23:36 | disposition home or self-care (01) ==
LOC: DL.ED 22:27
DX: S83.92XA Sprain of unspecified site of left knee, initial encounter (principal); Z88.0 Allergy status to penicillin; Z88.8 Allergy status to other drugs, medicaments and biological substances; W00.0XXA Fall on same level due to ice and snow, initial encounter; Y92.008 Other place in unspecified non-institutional (private) residence as the place of occurrence of the external cause
CPT/HCPCS: 73562-LT; 99283

== ENCOUNTER 2017-10-01 03:59 | Emergency (ER) | payer MEDICAID ==
[2017-10-01] MEDS ORDERED: LORazepam 0.5 MG Tab PO ONE (04:16)
[2017-10-01 04:17] VITALS: BP 118/74
--- NOTE | 2017-10-01 04:29 | EDM.PDOC ---
ED HPI GENERAL MEDICAL PROBLEM - General Chief Complaint: General Stated Complaint: AMBULANCE-SOB Time Seen by Provider: 10/01/17 04:05 Source of Information: Reports: Patient, EMS, EMS Notes Reviewed, Old Records, RN, RN Notes Reviewed History Limitations: Reports: No Limitations - History of Present Illness INITIAL COMMENTS - FREE TEXT/NARRATIVE: Nima is a 22 yo F who presents per EMS due to anxiety. EMS relates that they were at her house earlier in the night as they were called due to her having a panic attack. EMS relates that they were able to get her to calm down and her symptoms resolved. EMS reports that they were called back to her home shortly after leaving her house due to her having another anxiety attack therefore they transported her here. The patient reports that she has been experiencing a lot of stress in her life lately. Both of her kids have been sick , she recently started a new job, and has had a lot of conflict in her family life. She reports that she was sleeping and woke up feeling anxious. She reports mild chest tightness and numbness in both of her hands and face. She reports that her symptoms are similar to her prior anxiety attacks. She denies using any medications for her anxiety. Her sx normally go away on there own. She denies shortness of breath, nausea/vomiting, abd pain, or diaphoresis. Onset: Today Location: Reports: Chest Quality: Reports: Dull Severity: Mild Improves with: Reports: Rest Worsens with: Reports: None Associated Symptoms: Reports: Chest Pain, Other (Tingling in her hands and face. ) Left Mid-Sternal Chest Pain Score (Numeric/FACES): 2 - Related Data Allergies Allergy/AdvReac Type Severity Reaction Status Date / Time diphenhydramine HCl Allergy Cannot Verified 10/01/17 03:57 [From Benadryl] Remember Penicillins Allergy Shortness Verified 10/01/17 03:57 of Breath Home Meds: Home Meds . [No Known Home Meds] 08/06/17 [History] Past Medical History - Past Health History Medical/Surgical History: Denies Medical/Surgical History HEENT History: Reports: None Cardiovascular History: Reports: None Respiratory History: Reports: None Gastrointestinal History: Reports: None Genitourinary History: Reports: Pyelonephritis, Other (See Below) Other Genitourinary History: UTI in [employer] History: Reports: , Spontaneous Musculoskeletal History: Reports: None Neurological History: Reports: None Psychiatric History: Reports: Addiction, Anxiety, Depression, Emotional Problems , Suicidal Ideation Endocrine/Metabolic History: Reports: Other (See Below) Other Endocrine/Metabolic History: abnormal TSH in Hematologic History: Reports: Anemia Immunologic History: Reports: None Oncologic (Cancer) History: Reports: None Dermatologic History: Reports: None - Infectious Disease History Infectious Disease History: Reports: None, Influenza - Past Surgical History Head Surgeries/Procedures: Reports: None Female Surgical History: Reports: D&C Social & Family History - Family History Family Medical History: Noncontributory - Tobacco Use Smoking Status *Q: Current Status Unknown Used Tobacco, but Quit: No Second Hand Smoke Exposure: No - Caffeine Use Caffeine Use: Reports: Soda - Alcohol Use Days Per Week of Alcohol Use: 0 Number of Drinks Per Day: 1 Total Drinks Per Week: 0 - Recreational Drug Use Recreational Drug Use: Yes Recreational Drug Type: Reports: Marijuana/Hashish Recreational Drug Use Frequency: Rarely - Living Situation & Occupation Living situation: Reports: with Family Occupation: Employed ED ROS GENERAL - Review of Systems Review Of Systems: ROS reveals no pertinent complaints other than HPI. ED EXAM, GENERAL - Physical Exam Exam: See Below Exam Limited By: No Limitations General Appearance: Alert, WD/WN, No Apparent Distress Eye Exam: Bilateral Eye: PERRL Ears: Normal External Exam, Normal Canal, Hearing Grossly Normal, Normal TMs Ear Exam: Bilateral Ear: Auricle Normal, Canal Normal, TM normal Nose: Normal Inspection, Normal Mucosa, No Blood Throat/Mouth: Normal Inspection, Normal Lips, Normal Teeth, Normal Gums, Normal Oropharynx, Normal Voice, No Airway Compromise Head: Atraumatic, Normocephalic Neck: Normal Inspection, Supple, Non-Tender, Full Range of Motion Respiratory/Chest: No Respiratory Distress, Lungs Clear, Normal Breath Sounds, No Accessory Muscle Use, Chest Non-Tender Cardiovascular: Normal Peripheral Pulses, Regular Rate, Rhythm, No Edema, No Gallop, No JVD, No Murmur, No Rub GI/Abdominal: Normal Bowel Sounds, Soft, Non-Tender, No Organomegaly, No Distention, No Abnormal Bruit, No Mass (Female) Exam: Deferred Rectal (Female) Exam: Deferred Back Exam: Normal Inspection, Full Range of Motion, NT Extremities: Normal Inspection, Normal Range of Motion, Non-Tender, Normal Capillary Refill, No Pedal Edema Neurological: Alert, Oriented, CN II-XII Intact, Normal Cognition, Normal Gait, Normal Reflexes, No Motor/Sensory Deficits Psychiatric: Anxious Skin Exam: Warm, Dry, Intact, Normal Color, No Rash Lymphatic: No Adenopathy Course - Vital Signs Last Recorded V/S: Last Vital Signs Temp 96.6 F 10/01/17 04:05 Pulse 81 10/01/17 04:05 Resp 21 H 10/01/17 04:05 BP 118/74 10/01/17 04:05 Pulse Ox 100 10/01/17 04:05 - Orders/Labs/Meds Orders: Active Orders 24 hr Category Date Time Status DRUG SCREEN URINE BIORAD [URCHEM] Stat Lab 10/01/17 04:06 Ordered HCG QUALITATIVE,URINE [URCHEM] Stat Lab 10/01/17 04:06 Ordered UA W/MICROSCOPIC [URIN] Stat Lab 10/01/17 04:06 Ordered Labs: Laboratory Tests 10/01/17 10/01/17 10/01/17 Range/Units 04:06 04:06 04:06 Urine Color Yellow (YELLOW) Urine Appearance Cloudy (CLEAR) Urine pH 8.5 (5.0-9.0) Ur Specific [place] 1.015 (1.005-1.030) Urine Protein Trace H (NEGATIVE) Urine Glucose (UA) Negative (NEGATIVE) Urine Ketones Negative (NEGATIVE) Urine Occult Blood Large H (NEGATIVE) Urine Nitrite Negative (NEGATIVE) Urine Bilirubin Negative (NEGATIVE) Urine Urobilinogen 0.2 (0.2-1.0) mg/dL Ur Leukocyte Esterase Negative (NEGATIVE) Urine RBC >100 H /HPF Urine WBC 0-5 (0-5/HPF) /HPF Ur Epithelial Cells Few /HPF Urine Bacteria Moderate H (0-FEW/HPF) /HPF Urine HCG, Qual Negative Urine Opiates Screen Negative (NEGATIVE) Ur Oxycodone Screen Negative (NEGATIVE) Urine Methadone Screen Negative (NEGATIVE) Ur Barbiturates Screen Negative (NEGATIVE) U Tricyclic Antidepress Negative (NEGATIVE) Ur Phencyclidine Scrn Negative (NEGATIVE) Ur Amphetamine Screen Negative (NEGATIVE) U Methamphetamines Scrn Negative (NEGATIVE) Urine MDMA Screen Negative (NEGATIVE) U Benzodiazepines Scrn Negative (NEGATIVE) Urine Cocaine Screen Negative (NEGATIVE) U Marijuana (THC) Screen Negative (NEGATIVE) Meds: Medications Discontinued Medications Generic Name Dose Route Start Last Admin Trade Name Veronica PRN Reason Stop Dose Admin Lorazepam 0.5 mg 10/01/17 04:16 10/01/17 04:20 Ativan PO 10/01/17 04:17 0.5 mg ONETIME ONE Administration - Re-Assessments/Exams Free Text/Narrative Re-Assessment/Exam: 10/01/17 04:53 EKGs x2 reviewed from EMS. No ST elevation or depression appreciated. Departure - Departure Time of Disposition: 04:53 Disposition: Home, Self-Care 01 Condition: Good Clinical Impression: Anxiety - Discharge Information Instructions: Panic Attacks, [id number] Forms: ED Department Discharge Care Plan Goals: Follow-up with your primary care provider as needed. Return if you are having shortness of breath, chest pain, or other concerns.
== END 2017-10-01 05:07 | disposition home or self-care (01) ==
LOC: DL.ED 03:59
DX: F41.9 Anxiety disorder, unspecified (principal); Z88.0 Allergy status to penicillin; Z88.8 Allergy status to other drugs, medicaments and biological substances
CPT/HCPCS: 80305; 81001; 81025; 99284; A9270

== ENCOUNTER 2017-10-10 23:39 | Emergency (ER) | payer MEDICAID, OTHER ==
--- NOTE | 2017-10-11 00:31 | EDM.PDOC ---
ED HPI GENERAL MEDICAL PROBLEM - General Chief Complaint: Respiratory Problem Stated Complaint: DIFFICULTY BREATHING [id number] Time Seen by Provider: 10/11/17 00:35 Source of Information: Reports: Patient History Limitations: Reports: No Limitations - History of Present Illness INITIAL COMMENTS - FREE TEXT/NARRATIVE: Feeling SOB since am with hard time talking, Whole body tingling and chest pain. Has hx of anxiety. Similar symptoms in past - Related Data Allergies Allergy/AdvReac Type Severity Reaction Status Date / Time diphenhydramine HCl Allergy Cannot Verified 10/01/17 03:57 [From Benadryl] Remember Penicillins Allergy Shortness Verified 10/01/17 03:57 of Breath Home Meds: Home Meds . [No Known Home Meds] 08/06/17 [History] Past Medical History - Past Health History Medical/Surgical History: Denies Medical/Surgical History HEENT History: Reports: None Cardiovascular History: Reports: None Respiratory History: Reports: None Gastrointestinal History: Reports: None Genitourinary History: Reports: Pyelonephritis, Other (See Below) Other Genitourinary History: UTI in [employer] History: Reports: , Spontaneous Musculoskeletal History: Reports: None Neurological History: Reports: None Psychiatric History: Reports: Addiction, Anxiety, Depression, Emotional Problems , Suicidal Ideation Endocrine/Metabolic History: Reports: Other (See Below) Other Endocrine/Metabolic History: abnormal TSH in Hematologic History: Reports: Anemia Immunologic History: Reports: None Oncologic (Cancer) History: Reports: None Dermatologic History: Reports: None - Infectious Disease History Infectious Disease History: Reports: None, Influenza - Past Surgical History Head Surgeries/Procedures: Reports: None Female Surgical History: Reports: D&C Social & Family History - Family History Family Medical History: Noncontributory - Tobacco Use Smoking Status *Q: Never Smoker Used Tobacco, but Quit: No Second Hand Smoke Exposure: No - Caffeine Use Caffeine Use: Reports: None - Alcohol Use Days Per Week of Alcohol Use: 0 Number of Drinks Per Day: 1 Total Drinks Per Week: 0 - Recreational Drug Use Recreational Drug Use: No Recreational Drug Type: Reports: Marijuana/Hashish Recreational Drug Use Frequency: Rarely - Living Situation & Occupation Living situation: Reports: with Family Occupation: Employed ED ROS GENERAL - Review of Systems Review Of Systems: ROS reveals no pertinent complaints other than HPI. ED EXAM, GENERAL - Physical Exam Exam: See Below General Appearance: Alert, No Apparent Distress Eye Exam: Bilateral Eye: EOMI, PERRL Ear Exam: Bilateral Ear: TM normal Nose: Normal Inspection, Normal Mucosa Throat/Mouth: Normal Inspection Head: Atraumatic, Normocephalic Neck: Normal Inspection, Full Range of Motion Respiratory/Chest: No Respiratory Distress, Lungs Clear, Normal Breath Sounds Cardiovascular: Normal Peripheral Pulses, Regular Rate, Rhythm GI/Abdominal: Normal Bowel Sounds, Soft Extremities: Normal Inspection, Other (mild carpopedal spasm) Neurological: Alert, Oriented, Normal Cognition Psychiatric: Flat Affect Skin Exam: Warm, Dry, Intact, Normal Color EKG INTERPRETATION Rhythm: NSR Course - Vital Signs Last Recorded V/S: Last Vital Signs Temp 98.8 F 10/11/17 01:46 Pulse 67 10/11/17 01:46 Resp 14 10/11/17 01:46 BP 111/74 10/11/17 01:46 Pulse Ox 99 10/11/17 01:46 - Orders/Labs/Meds Orders: Active Orders 24 hr Category Date Time Status EKG 12 Lead [EKG Documentation Completion] [RC] URGENT Care 10/11/17 00:42 Active DRUG SCREEN URINE BIORAD [URCHEM] Stat Lab 10/11/17 00:58 Ordered UA W/MICROSCOPIC [URIN] Stat Lab 10/11/17 00:58 Ordered Labs: Laboratory Tests 10/11/17 10/11/17 10/11/17 Range/Units 00:50 00:50 00:58 WBC 8.3 (5.0-10.0) 10^3/uL RBC 4.16 L (4.2-5.4) 10^6/uL Hgb 11.3 L (12.0-16.0) g/dL Hct 35.3 L (37.0-47.0) % MCV 84.9 (80-100) fL MCH 27.2 (27.0-34.0) pg MCHC 32.0 L (33.0-35.0) g/dL Plt Count 368 D (150-450) 10^3/uL Neut % (Auto) 53.4 (42.2-75.2) % Lymph % (Auto) 35.6 (20.5-50.1) % Nelson % (Auto) 7.8 (2-8) % Eos % (Auto) 3.0 (1.0-3.0) % Baso % (Auto) 0.2 (0.0-1.0) % Sodium 139 (135-145) mmol/L Potassium 3.4 L (3.6-5.0) mmol/L Chloride 108 (101-111) mmol/L Carbon Dioxide 23.0 (21.0-31.0) mmol/L Anion Gap 11.4 BUN 7 (7-18) mg/dL Creatinine 0.6 (0.6-1.3) mg/dL Est Cr Clr Drug Dosing 143.02 mL/min Estimated GFR (MDRD) > 60 BUN/Creatinine Ratio 11.66 Glucose 98 (74-105) mg/dL Calcium 8.8 (8.4-10.2) mg/dl Total Bilirubin 0.4 (0.2-1.0) mg/dL AST 22 (10-42) IU/L ALT 22 (10-60) IU/L Alkaline Phosphatase 97 (42-121) IU/L Total Protein 7.6 (6.7-8.2) g/dl Albumin 3.9 (3.2-5.5) g/dl Globulin 3.7 Albumin/Globulin Ratio 1.05 Urine Color Brown (YELLOW) Urine Appearance Slightly cloudy (CLEAR) Urine pH 7.0 (5.0-9.0) Ur Specific [place] 1.020 (1.005-1.030) Urine Protein 30 H (NEGATIVE) Urine Glucose (UA) Negative (NEGATIVE) Urine Ketones 80 H (NEGATIVE) Urine Occult Blood Negative (NEGATIVE) Urine Nitrite Negative (NEGATIVE) Urine Bilirubin Small H (NEGATIVE) Urine Urobilinogen 1.0 (0.2-1.0) mg/dL Ur Leukocyte Esterase Negative (NEGATIVE) Urine RBC 0-5 /HPF Urine WBC 5-10 H (0-5/HPF) /HPF Ur Epithelial Cells Moderate H /HPF Urine Bacteria Moderate H (0-FEW/HPF) /HPF Urine Mucus Many H /LPF Urine Opiates Screen (NEGATIVE) Ur Oxycodone Screen (NEGATIVE) Urine Methadone Screen (NEGATIVE) Ur Barbiturates Screen (NEGATIVE) U Tricyclic Antidepress (NEGATIVE) Ur Phencyclidine Scrn (NEGATIVE) Ur Amphetamine Screen (NEGATIVE) U Methamphetamines Scrn (NEGATIVE) Urine MDMA Screen (NEGATIVE) U Benzodiazepines Scrn (NEGATIVE) Urine Cocaine Screen (NEGATIVE) U Marijuana (THC) Screen (NEGATIVE) 10/11/17 Range/Units 00:58 WBC (5.0-10.0) 10^3/uL RBC (4.2-5.4) 10^6/uL Hgb (12.0-16.0) g/dL Hct (37.0-47.0) % MCV (80-100) fL MCH (27.0-34.0) pg MCHC (33.0-35.0) g/dL Plt Count (150-450) 10^3/uL Neut % (Auto) (42.2-75.2) % Lymph % (Auto) (20.5-50.1) % Nelson % (Auto) (2-8) % Eos % (Auto) (1.0-3.0) % Baso % (Auto) (0.0-1.0) % Sodium (135-145) mmol/L Potassium (3.6-5.0) mmol/L Chloride (101-111) mmol/L Carbon Dioxide (21.0-31.0) mmol/L Anion Gap BUN (7-18) mg/dL Creatinine (0.6-1.3) mg/dL Est Cr Clr Drug Dosing mL/min Estimated GFR (MDRD) BUN/Creatinine Ratio Glucose (74-105) mg/dL Calcium (8.4-10.2) mg/dl Total Bilirubin (0.2-1.0) mg/dL AST (10-42) IU/L ALT (10-60) IU/L Alkaline Phosphatase (42-121) IU/L Total Protein (6.7-8.2) g/dl Albumin (3.2-5.5) g/dl Globulin Albumin/Globulin Ratio Urine Color (YELLOW) Urine Appearance (CLEAR) Urine pH (5.0-9.0) Ur Specific [place] (1.005-1.030) Urine Protein (NEGATIVE) Urine Glucose (UA) (NEGATIVE) Urine Ketones (NEGATIVE) Urine Occult Blood (NEGATIVE) Urine Nitrite (NEGATIVE) Urine Bilirubin (NEGATIVE) Urine Urobilinogen (0.2-1.0) mg/dL Ur Leukocyte Esterase (NEGATIVE) Urine RBC /HPF Urine WBC (0-5/HPF) /HPF Ur Epithelial Cells /HPF Urine Bacteria (0-FEW/HPF) /HPF Urine Mucus /LPF Urine Opiates Screen Negative (NEGATIVE) Ur Oxycodone Screen Negative (NEGATIVE) Urine Methadone Screen Negative (NEGATIVE) Ur Barbiturates Screen Negative (NEGATIVE) U Tricyclic Antidepress Negative (NEGATIVE) Ur Phencyclidine Scrn Negative (NEGATIVE) Ur Amphetamine Screen Negative (NEGATIVE) U Methamphetamines Scrn Negative (NEGATIVE) Urine MDMA Screen Negative (NEGATIVE) U Benzodiazepines Scrn Negative (NEGATIVE) Urine Cocaine Screen Negative (NEGATIVE) U Marijuana (THC) Screen Negative (NEGATIVE) Meds: Medications Discontinued Medications Generic Name Dose Route Start Last Admin Trade Name Freq PRN Reason Stop Dose Admin Lorazepam 0.5 mg 10/11/17 00:45 10/11/17 01:09 Ativan PO 10/11/17 00:46 0.5 mg ONETIME ONE Administration Departure - Departure Time of Disposition: 01:32 Disposition: Home, Self-Care 01 Condition: Good Clinical Impression: Anxiety - Discharge Information Forms: ED Department Discharge Additional Instructions: Follow up with primary care next week to discuss options to manage anxiety - My Orders Last 24 Hours: My Active Orders 10/11/17 00:42 EKG 12 Lead [EKG Documentation Completion] [RC] URGENT 10/11/17 00:58 DRUG SCREEN URINE BIORAD [URCHEM] Stat UA W/MICROSCOPIC [URIN] Stat - Assessment/Plan Last 24 Hours: My Active Orders 10/11/17 00:42 EKG 12 Lead [EKG Documentation Completion] [RC] URGENT 10/11/17 00:58 DRUG SCREEN URINE BIORAD [URCHEM] Stat UA W/MICROSCOPIC [URIN] Stat
[2017-10-11] MEDS ORDERED: LORazepam 0.5 MG Tab PO ONE (00:45)
[2017-10-11 01:16] LABS: ANION GAP 11.4; CHLORIDE,CL 108 mmol/L (101-111); SODIUM,NA 139 mmol/L (135-145)
[2017-10-11 01:47] VITALS: BP 111/74
--- NOTE | 2017-11-13 07:34 | EKG ---
10/11/2017 - GOOD SHOT, YUN LAKHANI - EKG is sinus rhythm with a rate of 67. Normal AL interval. Normal axis. EKG is within normal limits. [facility] /[id number]
== END 2017-10-11 01:46 | disposition home or self-care (01) ==
LOC: DL.ED 23:39
DX: F41.9 Anxiety disorder, unspecified (principal); Z88.0 Allergy status to penicillin; Z88.8 Allergy status to other drugs, medicaments and biological substances
CPT/HCPCS: 36415; 80053; 80305; 81001; 85025; 93005; 99283; A9270

== ENCOUNTER 2019-04-06 20:44 | Inpatient (IN) | payer MEDICAID ==
[2019-04-06] MEDS: Lactated Ringers 1,000 ML IV SCH (21:32)
[2019-04-06] MEDS ORDERED: Ondansetron 4 MG/2 ML SDV IV PRN (21:38)
[2019-04-06] MEDS ORDERED: Carboprost Tromethamine 250 MCG/1 ML Amp IM PRN (21:38)
[2019-04-06] MEDS ORDERED: Tranexamic Acid 1,000 MG in Sodium Chloride 0.9% 100 ML IV PRN (21:38)
[2019-04-06] MEDS ORDERED: Lactated Ringers 500 ML IV ONE (21:38)
[2019-04-06] MEDS ORDERED: Methylergonovine 0.2 MG/1 ML Amp IM PRN (21:38)
[2019-04-06] MEDS ORDERED: Lidocaine 1% 30 ML SDV INJECT PRN (21:38)
[2019-04-06] MEDS ORDERED: Misoprostol 400 MCG (4 X 100 MCG TAB) RECTAL PRN (21:38)
[2019-04-06] MEDS ORDERED: Sodium Chloride 0.9% 10 ML Syringe FLUSH PRN (21:38)
[2019-04-06] MEDS ORDERED: Oxytocin/Normal Saline 30 UNIT/500 ML BAG IV SCH (21:45)
[2019-04-07] MEDS: Lactated Ringers 1,000 ML IV SCH ×2 (05:53→06:48)
[2019-04-07] MEDS ORDERED: fentaNYL 100 MCG/2 ML SDV ONE (06:00)
[2019-04-07] MEDS ORDERED: EPINEPHrine 1 MG/1 ML Amp ONE (06:00)
[2019-04-07] MEDS ORDERED: Sodium Bicarbonate 4.2% 2.5 MEQ/5 ML SDV ONE (06:01)
--- NOTE | 2019-04-07 06:42 | PCM.SN ---
- Free Text/Narrative Note: Intrathecal, sitting position, sterile prep and drape. 1% lidocaine w bicarb x 2 to L2 L3 interspace. Introducer, 24 ga pencan x 4. Pos CSF, neg heme, neg parasthesia. 0.1ml pf 1:1000 epi, 20 mcg pf sufenta, 30 mcg pf fentanyl, 0.4 ml pf NS and 6 mg of 0.75% pf bupivacaine injected after CSF aspiration. Pt to L lateral position. Procedure time 0600 to 0640
[2019-04-07] MEDS ORDERED: ePHEDrine 50 MG/ML SDV ONE (06:50)
--- NOTE | 2019-04-07 10:06 | HP ---
PATIENT IDENTIFICATION: Nima Muse is a 23-year-old, G4, P1-1-1-2, intrauterine , 37-3/7 weeks, confirmed with 10-6/7-week ultrasound, who presents with contractions. HISTORY OF PRESENT ILLNESS: The patient states contractions started all day on 04/06/2019, got worse around 6 p.m. to the point that they are rated 6/10 to 7/10, felt in the lower abdomen, radiating to the back, causing her to feel hot during this time. They have been coming on every 2 to 4 minutes and getting worse over time. Nothing seems to make them better. She denies any spotting, bleeding, or leaking. To put this in context, she is GBS positive. Has allergies to amoxicillin and resistant GBS positive status to clindamycin, and so vancomycin will be given and called for as the patient was being admitted. She did present via ambulance. Records were called for, reviewed as below, and supplemented by patient history. OBSTETRICAL HISTORY: 1. 07/05/2015, 10-4/7th weeks, had a spontaneous . 2. 05/25/2016, 40-4/7 weeks, delivered via spontaneous vaginal delivery, term female, 8 pounds 5.7 ounces. 3. 05/11/2017, 35-2/7 weeks, male, 6 pounds 6 ounces. [facility]: ABO blood type A positive, negative antibody. Rubella nonimmune. Syphilis antibody was nonreactive. Negative hepatitis B surface antigen. Hepatitis C, HIV, GC, and chlamydia with wet prep within normal limits. One-hour GTT on 02/03/2019, was 94 with hemoglobin 10.4. GBS was positive on 03/31/2019, resistant to clindamycin but sensitive to vancomycin. ALLERGIES: Amoxicillin and penicillins as well as Benadryl/diphenhydramine type allergy. Does note that the patient in the past has taken Rocephin and Keflex without reaction. Vancomycin started as above. MEDICATIONS: 1. vitamins daily. 2. It was recommended to be on iron in the past. 3. sertraline 100 mg daily PAST MEDICAL HISTORY: Blood type A positive; immune to varicella; has generalized anxiety disorder; agoraphobia, diagnosed back in September 2017. PAST SURGICAL HISTORY: D and C in the past. FAMILY HISTORY: Cirrhosis in mother. Negative family history of asthma, arrhythmias, seizures, heart disease, sudden , defects, anesthesia problems, or bleeding problems. SOCIAL HISTORY: The patient lives in [place] with grandfather, daughter, son, and 2 brothers. No pets. Father of baby, Cruz Retana, has been incarcerated in the past. REVIEW OF SYSTEMS: Otherwise reviewed and felt to be noncontributory other than noted as above. OBJECTIVE: Vital Signs: Blood pressure 119/72, heart rate 68, temperature 98.1. Appearance: Female, appears her stated age, acting appropriate for age, nontoxic appearance, breathing through contractions, but answering questions appropriately in between. HEENT: Head is atraumatic. EOMs intact. PERRLA. No scleral icterus. No obvious otorrhea or rhinorrhea. Mucous membranes are moist. Neck: No obvious tenderness. Lungs: Clear to auscultation bilaterally. No increased work of breathing. Heart: S1 and S2. Regular rhythm. Abdomen: Gravid. Yusuf indeterminate. Nontender and nondistended. Bowel sounds positive. No organomegaly, pulsatile masses, or obvious hernias. No rebound, rigidity, or guarding. Monitors applied. Genitourinary: Normal external female genitalia. Normal position and presentation of urethra. Vaginal exam reveals her to be 4 cm, 85% effaced, -2 to -3 station, bulging bag of water felt and vertex suspected. Extremities: Trace pedal edema. Deep tendon reflexes 2/4 to 3/4 bilaterally and symmetric in the lower extremities. Psychiatric: Mood and affect congruent. Judgment and insight intact. Skin: Without any cyanosis, clubbing, or jaundice. DATA: Pending labs include a CBC and a [employer] drug screen on her urine. NST was found to be reactive and reassuring with a heart tone baseline around the 130s range. Tocometer reveals contractions every 2 to 4 minutes. ASSESSMENT: 1. Intrauterine at 37-3/7 weeks, confirmed with 10-6/7-week ultrasound. 2. Active labor upon admission. 3. Group B Streptococcus positive with allergy listed to amoxicillin, clindamycin resistant on culture, and vancomycin has been given. 4. Anemia in . We will check a CBC. 5. Rubella nonimmune. 6. History of delivery. 7. Review of chart did reveal the patient having left adnexal type cyst around the ovary with this . Will need followup after delivery. 8. G4, P1-1-2. PLAN: The patient has been admitted. We will start vancomycin. Follow clinically and closely at this point in time. The patient understands and agrees with the above treatment plan. [facility] /[id number] MTDNay
--- NOTE | 2019-04-07 10:11 | PN ---
DATE: 04/07/2019 SUBJECTIVE: The patient's contraction patterns have changed, waxing and waning at this point in time. OBJECTIVE: heart tones in the 140s to 150s with accelerations noted. Tocometer reveals contractions when they do read that have been intermittent and waxing and waning as well. Vaginal exam reveals 4+ to 5 cm, 85% effaced, -1 station, vertex suspected with bulging bag of water, and artificial rupture of membranes done after discussion with the patient yielding copious amounts of clear fluid with some minimal bloody show as well. ASSESSMENT AND PLAN: Intrauterine at 37-4/7 weeks, confirmed with 10 and 6/7 weeks' ultrasound, admitted in active labor. GBS positive status, now status post vancomycin given, with anemia of , hemoglobin 10.3 upon admission. Rubella nonimmune. G4, P1-1-1-2, now status post artificial rupture of membranes. We will continue to follow clinically and closely. The patient understands and agrees with the above treatment plan. [facility] /[id number]
--- NOTE | 2019-04-07 10:36 | PN ---
DATE: 04/07/2019 SUBJECTIVE: The patient has been started on Pitocin; continues to leak clear fluid vaginally. Pitocin is currently at 8 milliunits. She was evaluated approximately an hour ago, was found to be 6 cm, requested intrathecal and was given one, and now is pain free. OBJECTIVE: heart tones in the 130s to 150s with accelerations noted. Tocometer reveals contractions when reading every 4 minutes at the current time of dictation. Vaginal exam reveals her to be 6 cm, 85% effaced, -1 -2 station, vertex suspected, and clear fluid still emanating from the vaginal region. ASSESSMENT AND PLAN: Intrauterine , now at 37 and 4/7 weeks, admitted in active labor. Due for her second dose of vancomycin this morning around 9:30. The patient is now status post nonstress test, artificial rupture of membranes, Pitocin augmentation, and intrathecal, and we will continue to follow clinically and closely at this point in time. The patient understands and agrees with the above treatment plan. [facility] /[id number]
--- NOTE | 2019-04-07 10:41 | OBOUT ---
DATE: 04/06/2019 TIME: 2050 hours to 2101 hours. REASON FOR NST: 1. Intrauterine , 37-3/7 weeks, confirmed with 10-6/7-week ultrasound. 2. Active labor, suspected. 3. GBS positive with an allergy to amoxicillin. Vancomycin has been started as resistant to clindamycin. 4. Anemia of . 5. Rubella nonimmune. 6. History of delivery. 7. History of left adnexal/ovarian type cyst with this . Will need followup after delivery. 8. -1-1-2. NST INTERPRETATION: During this time period, heart tone baseline is approximately 130 to 135 and there are at least two 15 x 15 beat per minute accelerations, making this strip reactive. It is also noted to be reassuring. Tocometer reveals potential 3 contractions felt by the patient. ASSESSMENT: 1. Nonstress test-reactive and reassuring. 2. Tocometer with contractions. PLAN: Please see admit history and physical for further details. We will continue to follow closely. At this point in time, vancomycin has been started. [facility] /[id number]
[2019-04-07] MEDS ORDERED: Simethicone 80 MG Tab.Chew PO PRN (11:07)
[2019-04-07] MEDS ORDERED: Benzocaine/Menthol 20%-0.5% Spray 56 GM Canister TOP PRN (11:07)
[2019-04-07] MEDS ORDERED: Sodium Chloride 0.9% 10 ML Syringe FLUSH PRN (11:07)
[2019-04-07] MEDS ORDERED: Oxytocin 10 Units/1 ML SDV IM PRN (11:07)
[2019-04-07] MEDS: Ibuprofen 800 MG Tab PO PRN ×2 (12:32→20:16)
[2019-04-07] MEDS: Acetaminophen 325 MG Tab PO PRN (18:35)
[2019-04-07] MEDS: Docusate Sodium 100 MG Cap PO PRN (18:36)
[2019-04-07] MEDS ORDERED: Zolpidem 5 MG Tab PO PRN (21:00)
[2019-04-08] MEDS: Prenatal Multivitamin with Calcium/Folic Acid/Iron Tab PO SCH (08:34)
[2019-04-08] MEDS: Ibuprofen 800 MG Tab PO PRN ×2 (08:34→19:04)
[2019-04-08] MEDS: Ferrous Sulfate 325 MG Tab PO SCH (08:34)
[2019-04-08] MEDS: Docusate Sodium 100 MG Cap PO PRN (08:34)
--- NOTE | 2019-04-08 09:28 | DEL ---
DATE: 04/07/2019 PREOPERATIVE DIAGNOSES: 1. Intrauterine 37 and 4/7 weeks, confirmed with 10 and 6/7-week ultrasound. 2. Active labor upon admission. 3. Group B Streptococcus positive status, got 2 doses of vancomycin with allergy to amoxicillin. 4. Anemia of with hemoglobin 10.3 upon admission. 5. Rubella nonimmune. 6. History of delivery. 7. Left adnexal ovarian type cyst with the , will need followup after delivery. 8. G4, P1-1-1-2. POSTOPERATIVE DIAGNOSES: 1. Intrauterine 37 and 4/7 weeks, confirmed with 10 and 6/7-week ultrasound - delivered. 2. Active labor upon admission. 3. Group B Streptococcus positive status, got 2 doses of vancomycin with allergy to amoxicillin. 4. Anemia of with hemoglobin 10.3 upon admission. 5. Rubella nonimmune. 6. History of delivery. 7. Left adnexal ovarian type cyst with the , will need followup after delivery. 8. G4, P1-1-1-2. 9. hemorrhage with EBL 1000 mL. 10.Uterine atony requiring 800 mcg of Cytotec, increasing Pitocin, and aggressive fundal massage. PROCEDURES PERFORMED: NST on 04/06/2019 followed by on 04/07/2019: Artificial rupture membranes, Pitocin augmentation, and subsequent spontaneous vaginal delivery. METER REPAIRER HELPER: None. ANESTHESIA/ANALGESIA: The patient did receive an intrathecal in the first stage of labor. FINDINGS: Male, scores 9 and 9, weight pending. SUMMARY OF EVENTS: The patient is a 23-year-old, G4, P1-1-1-2, intrauterine at 37 and 3/7 weeks' on date of admission and 37 and 4/7 weeks on date of delivery who presented in active labor. She was GBS positive status with amoxicillin allergy, was given vancomycin 2 doses prior to delivery. She had anemia of with hemoglobin 10.3. Subsequently admitted and underwent artificial rupture of membranes after approximately 4 hours after vancomycin had been started. Required Pitocin augmentation thereafter, then was found to be nearing the second stage of labor, and I was called to the room. I donned sterile gown and gloves. The patient was found to be in the second stage of labor. She started pushing with contractions. Urine was noted coming from the bladder with pushing and it was felt to be in the way. Licea-type catheter was introduced and used and clear fluid returned and subsequently removed. Subsequently, vertex was then delivered with the patient pushing with contractions in an NAMITA presentation. Anterior and posterior shoulder as well as the rest of the delivered without difficulty. Mouth and nares suctioned, cord was doubly clamped and cut, and was brought to team. Then, approximately 10 mL cord blood was obtained for labs. Placenta then delivered with gentle cord traction and fundal massage. Perineum, vagina, and perirectal areas were then examined and noted to have bilateral periurethral abrasions, nonbleeding, nonrepaired. After discussion with the patient, and excessive bleeding was noted at that time with uterine atony. Medicines were called for, Pitocin was increased to 999/hour and Cytotec when available was given 800 mcg rectally. Continued fundal massage ensued and bleeding decreased significantly. EBL 1000 cc. Mother and infant are currently stable at the time of dictation. We will do a CBC in the morning and follow clinically and closely. [facility] /[id number] MTDD
[2019-04-08] MEDS ORDERED: Measles, Mumps & Rubella Vaccine 0.5 ML SDV SUBCUT ONE (12:00)
[2019-04-09] MEDS: Acetaminophen 325 MG Tab PO PRN (03:28)
[2019-04-09] MEDS: Ibuprofen 800 MG Tab PO PRN (03:28)
[2019-04-09] MEDS: Ferrous Sulfate 325 MG Tab PO SCH (08:44)
[2019-04-09] MEDS: Prenatal Multivitamin with Calcium/Folic Acid/Iron Tab PO SCH (08:45)
[2019-04-09] MEDS: Docusate Sodium 100 MG Cap PO PRN (08:45)
[2019-04-09 08:49] VITALS: BP 110/67; PULSE 63
[2019-04-09] MEDS ORDERED: EPINEPHrine 1 MG/1 ML Amp IV ONE (13:39)
[2019-04-09] MEDS ORDERED: fentaNYL 100 MCG/2 ML SDV ITHECAL ONE (13:39)
[2019-04-09] MEDS ORDERED: Sodium Bicarbonate 4.2% 2.5 MEQ/5 ML SDV IV ONE (13:39)
--- NOTE | 2019-04-11 08:54 | PN ---
DATE: 04/08/2019 day #1. SUBJECTIVE: The patient is tolerating p.o., ambulating, urinating, passing flatus. She denies any chest pain, shortness of breath, or lightheadedness. She did have an EBL around 1000 mL. OBJECTIVE: Vital Signs: Temperature 98.1, heart rate 67, blood pressure 113/72, respiratory rate 16. Lungs: Clear to auscultation bilaterally. Heart: S1, S2. Regular rate and rhythm. Abdomen: Firm uterus -1 below umbilicus. Extremities: No peripheral edema. No calf pain. LABORATORY DATA: Labs reveal white cell count 11, hemoglobin 9.7, and platelets 212. ASSESSMENT: 1. day #1, status post spontaneous vaginal delivery. 2. hemorrhage with an EBL of 1000 mL. Hemoglobin has dropped from 10.3 to 9.7. No symptoms currently. We will continue to follow clinically and closely. Repeat CBC tomorrow. Iron started. Her hemorrhage is related to uterine atony and she did require 800 mcg of Cytotec rectally and increase in Pitocin as well as fundal massage. PLAN: As above. Possible discharge tomorrow. This patient's case has been discussed with Dr. Ahuja, and she will be rounding in my absence. [facility] /[id number]
--- NOTE | 2019-04-11 09:45 | DISCH ---
ADMISSION DIAGNOSES: 1. Intrauterine at 37-3/7 weeks, confirmed with 10-6/7 weeks' ultrasound. 2. Active labor upon admission. 3. Group B Streptococcus positive. Allergic to amoxicillin and clindamycin. Resistant to vancomycin, given appropriately. 4. Anemia of with hemoglobin of 10.3 upon admission. 5. Rubella nonimmune. 6. History of delivery. 7. Left adnexal type cyst, ovarian, with , will need followup after delivery. 8. G4, P1-1-1-2. DISCHARGE DIAGNOSES: 1. Intrauterine at 37-4/7 weeks, confirmed with 10-6/7 weeks' ultrasound-delivered. 2. Active labor upon admission. 3. Group B Streptococcus positive. Allergic to amoxicillin and clindamycin. Resistant to vancomycin, given appropriately. 4. Anemia of with hemoglobin of 10.3 upon admission. 5. Rubella nonimmune. 6. History of delivery. 7. Left adnexal type cyst-ovarian with , will need followup after delivery. 8. G4, P1-1-1-2. 9. hemorrhage with estimated blood loss of 1000 mL. 10.Uterine atony requiring Cytotec 800 mcg rectally. PROCEDURES PERFORMED: NST on 04/06/2019, artificial rupture membranes, Pitocin augmentation, and spontaneous vaginal delivery on 04/07/2019. HISTORY OF PRESENT ILLNESS: Please see H and P. SUMMARY OF HOSPITAL COURSE: The patient was admitted on the above date with the above diagnoses in active labor. Given vancomycin, had 2 doses prior to delivery. She went on to have a spontaneous vaginal delivery after undergoing artificial rupture membranes and Pitocin augmentation yielding a male, score 9 and 9, weighing 8 pounds 6 ounces (3810 g). EBL was 1000 with uterine atony requiring Cytotec 800 mcg rectally. Please see delivery note for further details. day #1, please see progress notes. Labs did reveal a white cell count of 11, hemoglobin 9.7, platelets 212. day #2, date of discharge, the patient was tolerating p.o.'s, ambulating, urinating, passing flatus, requesting discharge if roads were clear as a significant winter storm. OBJECTIVE: Vital Signs: Temperature 98.4, heart rate 63, blood pressure 110/67, respiratory rate 16. Lungs: Clear to auscultation bilaterally. Heart: S1, S2. Regular rate and rhythm. Abdomen: Firm uterus minus 1 below umbilicus. Extremities: No peripheral edema. No calf pain. CONDITION ON DISCHARGE COMPARED TO CONDITION ON ADMISSION: Improved. DISCHARGE INSTRUCTIONS: Diet: As tolerated. Activity: No lifting more than 20 pounds. No sit-ups, straining, and pelvic rest for next 6 weeks with immediate return to fertility discussed with the patient. Reasons to return or go to the emergency room were discussed with the patient in detail including, but not limited to, temperature greater than 100.4, foul- smelling discharge, red hot tender breasts, or increased vaginal bleeding. DISCHARGE MEDICATIONS: [id number] Tylenol or ibuprofen for pain, vitamins x6 weeks, and iron sulfate 325 daily for 6 weeks. Scripts given for this. The patient defers stool softener. FOLLOWUP PLAN: Follow up in 6 weeks' with ultrasound of her adnexa, concentrating on the left region as this is where I suspect an ovarian cyst was noted during her . This was discussed with patient. Did discuss with the patient in the interim reasons to return or go to the emergency room in regard to her . Followup scheduled for her infant on 04/11/2019, and did discuss with her the importance of followup and ramifications of not doing so. [facility] /[id number]
== END 2019-04-09 13:40 | disposition home or self-care (01) | DRG 807 ==
LOC: DL.OBCHECK 20:44 → DL.OB 21:10 → UNDOADMOB 21:10 → DL.OB 21:38 → OBSVTOIN 04-07 10:58
PROVIDERS: ADMIT Family Medicine; ATTEND Family Medicine
PROC: 10E0XZZ Delivery of Products of Conception, External Approach (ICD-10-PCS; principal; 2019-04-07)
PROC: 10907ZC Drainage of Amniotic Fluid, Therapeutic from Products of Conception, Via Natural or Artificial Opening (ICD-10-PCS; 2019-04-07)
DX: O99.824 Streptococcus B carrier state complicating childbirth (principal); Z37.0 Single live birth; O99.344 Other mental disorders complicating childbirth; F41.1 Generalized anxiety disorder; O99.02 Anemia complicating childbirth; D64.9 Anemia, unspecified; Z3A.37 37 weeks gestation of pregnancy; Z88.1 Allergy status to other antibiotic agents; Z88.0 Allergy status to penicillin; Z88.8 Allergy status to other drugs, medicaments and biological substances; Z79.899 Other long term (current) drug therapy
CPT/HCPCS: 36415; 51701; 59409; 80305-QW; 85027; 90471; 90707; A9270-GY; J0171; J2405; J2590; J3010; J3370; J7050; J7120

== ENCOUNTER 2019-11-19 23:24 | Emergency (ER) | payer MEDICAID, OTHER ==
[2019-11-19 23:34] VITALS: BP 115/76; PULSE 80
--- NOTE | 2019-11-19 23:50 | EDM.PDOC ---
ED HPI GENERAL MEDICAL PROBLEM - General Chief Complaint: Respiratory Problem Stated Complaint: HARD TIME BREATHING Time Seen by Provider: 11/19/19 23:48 Source of Information: Reports: Patient History Limitations: Reports: No Limitations - History of Present Illness INITIAL COMMENTS - FREE TEXT/NARRATIVE: sharp left side chest pain on-off since yesterday. had anxiety before but usually in middle. Left Upper Chest Pain Score (Numeric/FACES): 6 - Related Data Allergies Allergy/AdvReac Type Severity Reaction Status Date / Time amoxicillin Allergy Airway Verified 11/19/19 23:33 Tightness diphenhydramine HCl Allergy Cannot Verified 11/19/19 23:33 [From Benadryl] Remember Penicillins Allergy Shortness Verified 11/19/19 23:33 of Breath Home Meds: Home Meds Sertraline [Zoloft] 50 mg PO DAILY 02/17/19 [History] Past Medical History - Past Health History Medical/Surgical History: Denies Medical/Surgical History HEENT History: Reports: None Cardiovascular History: Reports: None Respiratory History: Reports: None Gastrointestinal History: Reports: None Genitourinary History: Reports: Pyelonephritis, Other (See Below) Other Genitourinary History: UTI in [employer]OWER[employer] History: Reports: , Spontaneous Musculoskeletal History: Reports: None Neurological History: Reports: None Psychiatric History: Reports: Addiction, Anxiety, Depression, Emotional Problems , Suicidal Ideation Endocrine/Metabolic History: Reports: Obesity/BMI 30+, Other (See Below) Other Endocrine/Metabolic History: abnormal TSH in Hematologic History: Reports: Anemia Immunologic History: Reports: None Oncologic (Cancer) History: Reports: None Dermatologic History: Reports: None - Infectious Disease History Infectious Disease History: Reports: Influenza - Past Surgical History Head Surgeries/Procedures: Reports: None Female Surgical History: Reports: D&C Social & Family History - Family History Family Medical History: Noncontributory - Tobacco Use Smoking Status *Q: Never Smoker Second Hand Smoke Exposure: Yes - Caffeine Use Caffeine Use: Reports: Soda - Recreational Drug Use Recreational Drug Use: No - Living Situation & Occupation Living situation: Reports: with Family Occupation: Employed ED ROS GENERAL - Review of Systems Review Of Systems: Comprehensive ROS is negative, except as noted in HPI. ED EXAM, GENERAL - Physical Exam Exam: See Below Exam Limited By: No Limitations General Appearance: Alert, WD/WN, Anxious, Mild Distress Ears: Hearing Grossly Normal Throat/Mouth: Normal Voice, No Airway Compromise Head: Atraumatic Neck: Non-Tender, Full Range of Motion Respiratory/Chest: No Accessory Muscle Use, Rhonchi. No: Decreased Breath Sounds Cardiovascular: Regular Rate, Rhythm GI/Abdominal: Soft, Non-Tender Neurological: Alert, Oriented, Normal Cognition, Normal Gait, No Motor/Sensory Deficits Psychiatric: Anxious, Flat Affect Skin Exam: Warm, Dry, Normal Color Lymphatic: No Adenopathy Course - Vital Signs Last Recorded V/S: Last Vital Signs Temp 36.4 C 11/19/19 23:29 Pulse 80 11/19/19 23:29 Resp 18 11/19/19 23:29 BP 115/76 11/19/19 23:29 Pulse Ox 100 11/19/19 23:29 - Orders/Labs/Meds Orders: Active Orders 24 hr Category Date Time Status Acetaminophen/HYDROcodone [[place] 325-10 MG] Med 11/20/19 00:44 Once 1 tab PO ONETIME ONE Labs: Laboratory Tests 11/19/19 11/19/19 Range/Units 23:55 23:55 WBC 9.1 (5.0-10.0) 10^3/uL RBC 4.23 (4.2-5.4) 10^6/uL Hgb 8.9 L D (12.0-16.0) g/dL Hct 30.5 L (37.0-47.0) % MCV 72.1 L D (80-100) fL MCH 21.0 L (27.0-34.0) pg MCHC 29.2 L (33.0-35.0) g/dL Plt Count 395 (150-450) 10^3/uL Neut % (Auto) 73.0 (42.2-75.2) % Lymph % (Auto) 19.3 L (20.5-50.1) % [place] % (Auto) 6.8 (2-8) % Eos % (Auto) 0.8 L (1.0-3.0) % Baso % (Auto) 0.1 (0.0-1.0) % Sodium 140 (136-145) mmol/L Potassium 3.7 (3.5-5.1) mmol/L Chloride 104 (98-107) mmol/L Carbon Dioxide 28 (21-32) mmol/L Anion Gap 11.7 (7-13) mEq/L BUN 10 (7-18) mg/dL Creatinine 0.84 (0.55-1.02) mg/dL Est Cr Clr Drug Dosing 100.43 mL/min Estimated GFR (MDRD) > 60 BUN/Creatinine Ratio 11.9 (No establ ref range) Glucose 94 (74-99) mg/dL Calcium 7.9 L (8.5-10.1) mg/dL Total Bilirubin 0.2 (0.2-1.0) mg/dL AST 17 (15-37) U/L ALT 20 (14-59) U/L Alkaline Phosphatase 132 H (46-116) U/L Troponin I < 0.017 (0.000-0.056) ng/mL Total Protein 7.6 (6.4-8.2) g/dL Albumin 3.4 (3.4-5.0) g/dL Globulin 4.2 Albumin/Globulin Ratio 0.8 - Re-Assessments/Exams Free Text/Narrative Re-Assessment/Exam: 11/20/19 00:45 results discussed with pt whose mid sternal pressure now gone since taking her hydroxyz [employer] but the sharp on-off pain left chest still not gone. Departure - Departure Time of Disposition: 00:46 Disposition: Home, Self-Care 01 Condition: Good Clinical Impression: Anxiety, Anterior chest wall pain - Discharge Information Forms: ED Department Discharge Additional Instructions: 1) see clinic Thursday to recheck haemoglobin and possibly start on iron meds 2) avoid bending lifting straining Sepsis Event Note - Evaluation Sepsis Screening Result: No Definite Risk - Focused Exam Vital Signs: Vital Signs Temp Pulse Resp BP Pulse Ox 11/19/19 23:29 36.4 C 80 18 115/76 100 Date Exam was Performed: 11/20/19 Time Exam was Performed: 00:45 - My Orders Last 24 Hours: My Active Orders 11/20/19 00:44 Acetaminophen/HYDROcodone [[place] 325-10 MG] 1 tab PO ONETIME ONE - Assessment/Plan Last 24 Hours: My Active Orders 11/20/19 00:44 Acetaminophen/HYDROcodone [[place] 325-10 MG] 1 tab PO ONETIME ONE
[2019-11-20 00:23] LABS: ANION GAP 11.7 mEq/L (7-13); CHLORIDE,CL 104 mmol/L (98-107); SODIUM,NA 140 mmol/L (136-145)
[2019-11-20] MEDS ORDERED: Acetaminophen/HYDROcodone 325-10 MG Tab PO ONE (00:44)
== END 2019-11-20 00:53 | disposition home or self-care (01) ==
LOC: DL.ED 23:24
DX: R07.89 Other chest pain (principal); F41.9 Anxiety disorder, unspecified; F32.9 Major depressive disorder, single episode, unspecified; E66.9 Obesity, unspecified; Z68.32 Body mass index [BMI] 32.0-32.9, adult; Z77.22 Contact with and (suspected) exposure to environmental tobacco smoke (acute) (chronic); Z88.1 Allergy status to other antibiotic agents; Z88.8 Allergy status to other drugs, medicaments and biological substances; Z88.0 Allergy status to penicillin; Z79.899 Other long term (current) drug therapy
CPT/HCPCS: 36415; 80053; 84484; 85025; 99284; A9270

== ENCOUNTER 2020-01-26 21:41 | Observation (INO) | payer MEDICAID, OTHER ==
--- NOTE | 2020-01-26 21:45 | EDM.PDOC ---
ED HPI GENERAL MEDICAL PROBLEM - General Stated Complaint: POSITIVE COVID Time Seen by Provider: 01/26/20 21:44 Source of Information: Reports: Patient History Limitations: Reports: No Limitations - History of Present Illness INITIAL COMMENTS - FREE TEXT/NARRATIVE: states tested pos covid 01-19-20 c/o increase SOB. has h/o anxiety out of zoloft, not sure if anxiety also LMP last month could be too. Mid-Sternal Chest Pain Score (Numeric/FACES): 5 - Related Data Allergies Allergy/AdvReac Type Severity Reaction Status Date / Time amoxicillin Allergy Airway Verified 01/26/20 21:52 Tightness diphenhydramine HCl Allergy Cannot Verified 01/26/20 21:52 [From Benadryl] Remember Penicillins Allergy Shortness Verified 01/26/20 21:52 of Breath Home Meds: Home Meds Sertraline [Zoloft] 50 mg PO DAILY 02/17/19 [History] hydrOXYzine HCL [Atarax] 50 mg PO ASDIRECTED PRN 01/26/20 [History] Past Medical History - Past Health History Medical/Surgical History: Denies Medical/Surgical History HEENT History: Reports: None Cardiovascular History: Reports: None Respiratory History: Reports: None Gastrointestinal History: Reports: None Genitourinary History: Reports: Pyelonephritis, Other (See Below) Other Genitourinary History: UTI in [employer] History: Reports: , Spontaneous Musculoskeletal History: Reports: None Neurological History: Reports: None Psychiatric History: Reports: Addiction, Anxiety, Depression, Emotional Problems, Suicidal Ideation Endocrine/Metabolic History: Reports: Obesity/BMI 30+, Other (See Below) Other Endocrine/Metabolic History: abnormal TSH in Hematologic History: Reports: Anemia Immunologic History: Reports: None Oncologic (Cancer) History: Reports: None Dermatologic History: Reports: None - Infectious Disease History Infectious Disease History: Reports: Influenza - Past Surgical History Head Surgeries/Procedures: Reports: None Female Surgical History: Reports: D&C Social & Family History - Family History Family Medical History: Noncontributory - Caffeine Use Caffeine Use: Reports: Soda - Living Situation & Occupation Living situation: Reports: with Family Occupation: Employed ED ROS GENERAL - Review of Systems Review Of Systems: Comprehensive ROS is negative, except as noted in HPI. ED EXAM, GENERAL - Physical Exam Exam: See Below Exam Limited By: No Limitations General Appearance: Alert, WD/WN, Mild Distress, Other (discomfort) Ears: Hearing Grossly Normal Throat/Mouth: Normal Voice, No Airway Compromise Head: Atraumatic Neck: Non-Tender, Full Range of Motion Respiratory/Chest: No Respiratory Distress Cardiovascular: Regular Rate, Rhythm GI/Abdominal: Soft, Non-Tender Neurological: Alert, Oriented, Normal Cognition, Normal Gait, No Motor/Sensory Deficits Psychiatric: Flat Affect Skin Exam: Warm, Dry, Normal Color Lymphatic: No Adenopathy Course - Vital Signs Last Recorded V/S: Last Vital Signs Temp 37.1 C 01/26/20 21:47 Pulse 94 01/26/20 21:47 Resp 20 01/26/20 21:47 BP 115/81 01/26/20 21:47 Pulse Ox 99 01/26/20 21:47 - Orders/Labs/Meds Labs: Laboratory Tests 01/26/20 01/26/20 01/26/20 Range/Units 21:43 22:20 22:20 WBC 4.9 L (5.0-10.0) 10^3/uL RBC 4.52 (4.2-5.4) 10^6/uL Hgb 9.5 L (12.0-16.0) g/dL Hct 31.5 L (37.0-47.0) % MCV 69.7 L (80-100) fL MCH 21.0 L (27.0-34.0) pg MCHC 30.2 L (33.0-35.0) g/dL Plt Count 411 (150-450) 10^3/uL Neut % (Auto) 64.9 (42.2-75.2) % Lymph % (Auto) 28.2 (20.5-50.1) % [place] % (Auto) 6.7 (2-8) % Eos % (Auto) 0.2 L (1.0-3.0) % Baso % (Auto) 0.0 (0.0-1.0) % D-Dimer, Quantitative 735 H (0-400) ng/mL Sodium (136-145) mmol/L Potassium (3.5-5.1) mmol/L Chloride (98-107) mmol/L Carbon Dioxide (21-32) mmol/L Anion Gap (7-13) mEq/L BUN (7-18) mg/dL Creatinine (0.55-1.02) mg/dL Est Cr Clr Drug Dosing mL/min Estimated GFR (MDRD) BUN/Creatinine Ratio (No establ ref range) Glucose (74-99) mg/dL Lactic Acid (0.4-2.0) mmol/L Calcium (8.5-10.1) mg/dL Total Bilirubin (0.2-1.0) mg/dL AST (15-37) U/L ALT (14-59) U/L Alkaline Phosphatase (46-116) U/L Troponin I (0.000-0.056) ng/mL C-Reactive Protein (0.0-0.9) mg/dL Total Protein (6.4-8.2) g/dL Albumin (3.4-5.0) g/dL Globulin Albumin/Globulin Ratio HCG, Qual COVID-19 (VINICIUS) Positive H (NEGATIVE) 01/26/20 01/26/20 01/26/20 Range/Units 22:20 22:20 22:20 WBC (5.0-10.0) 10^3/uL RBC (4.2-5.4) 10^6/uL Hgb (12.0-16.0) g/dL Hct (37.0-47.0) % MCV (80-100) fL MCH (27.0-34.0) pg MCHC (33.0-35.0) g/dL Plt Count (150-450) 10^3/uL Neut % (Auto) (42.2-75.2) % Lymph % (Auto) (20.5-50.1) % [place] % (Auto) (2-8) % Eos % (Auto) (1.0-3.0) % Baso % (Auto) (0.0-1.0) % D-Dimer, Quantitative (0-400) ng/mL Sodium 137 (136-145) mmol/L Potassium 3.7 (3.5-5.1) mmol/L Chloride 101 (98-107) mmol/L Carbon Dioxide 25 (21-32) mmol/L Anion Gap 14.7 H (7-13) mEq/L BUN 8 (7-18) mg/dL Creatinine 0.58 (0.55-1.02) mg/dL Est Cr Clr Drug Dosing 145.44 mL/min Estimated GFR (MDRD) > 60 BUN/Creatinine Ratio 13.8 (No establ ref range) Glucose 100 H (74-99) mg/dL Lactic Acid 1.4 (0.4-2.0) mmol/L Calcium 7.9 L (8.5-10.1) mg/dL Total Bilirubin 0.1 L (0.2-1.0) mg/dL AST 24 (15-37) U/L ALT 42 (14-59) U/L Alkaline Phosphatase 132 H (46-116) U/L Troponin I < 0.017 (0.000-0.056) ng/mL C-Reactive Protein 1.3 H (0.0-0.9) mg/dL Total Protein 8.1 (6.4-8.2) g/dL Albumin 3.6 (3.4-5.0) g/dL Globulin 4.5 Albumin/Globulin Ratio 0.8 HCG, Qual Positive COVID-19 (VINICIUS) (NEGATIVE) - Re-Assessments/Exams Free Text/Narrative Re-Assessment/Exam: 01/27/20 00:[address] Abdi who kindly admitted pt to observation. Departure - Departure Time of Disposition: 00:40 Disposition: Refer to Observation Condition: Good Clinical Impression: COVID-19, and not yet delivered in first trimester, Elevated d-dimer - Discharge Information Forms: ED Department Discharge Sepsis Event Note (ED) - Focused Exam Vital Signs: Vital Signs Temp Pulse Resp BP Pulse Ox 01/26/20 21:47 37.1 C 94 20 115/81 99
[2020-01-26 23:05] LABS: ANION GAP 14.7 mEq/L (7-13); CHLORIDE,CL 101 mmol/L (98-107); SODIUM,NA 137 mmol/L (136-145)
[2020-01-27] MEDS ORDERED: Ondansetron 4 MG Tab.DIS PO PRN (01:45)
[2020-01-27] MEDS ORDERED: Sodium Chloride 0.9% 10 ML Syringe FLUSH PRN (01:45)
[2020-01-27] MEDS ORDERED: Acetaminophen 325 MG Tab PO PRN (01:45)
[2020-01-27] MEDS ORDERED: diphenhydrAMINE 25 MG Tab PO PRN (01:49)
--- NOTE | 2020-01-27 01:56 | PCM.HP ---
H&P History of Present Illness - General Date of Service: 01/27/20 Admit Problem/Dx: Admission Diagnosis/Problem Admission Diagnosis/Problem Short of breath on exertion Source of Information: Patient - History of Present Illness Initial Comments - Free Text/Narative: 24-year-old lady with a history of anxiety. On the December she tested positive for covid-19. Had family members with Covid. Has been coughing for about a week. No associated fever. presented to the ER with increasing shortness of breath. Good oxygen saturations noted,COVID-19 positive, elevated d-dimer She was also noted to have positive test. She believes she is only about 4-6 weeks . Mid-Sternal Chest Pain Score (Numeric/FACES): 5 - Related Data Allergies/Adverse Reactions: Allergies Allergy/AdvReac Type Severity Reaction Status Date / Time amoxicillin Allergy Airway Verified 01/26/20 21:52 Tightness diphenhydramine HCl Allergy Cannot Verified 01/26/20 21:52 [From Benadryl] Remember Penicillins Allergy Shortness Verified 01/26/20 21:52 of Breath Home Medications: Home Meds Sertraline [Zoloft] 50 mg PO DAILY 02/17/19 [History] hydrOXYzine HCL [Atarax] 50 mg PO ASDIRECTED PRN 01/26/20 [History] Past Medical History - Past Health History Medical/Surgical History: Denies Medical/Surgical History HEENT History: Reports: None Cardiovascular History: Reports: None Respiratory History: Reports: None Gastrointestinal History: Reports: None Genitourinary History: Reports: Pyelonephritis, Other (See Below) Other Genitourinary History: UTI in [employer] History: Reports: , Spontaneous Musculoskeletal History: Reports: None Neurological History: Reports: None Psychiatric History: Reports: Addiction, Anxiety, Depression, Emotional Problems, Suicidal Ideation Endocrine/Metabolic History: Reports: Obesity/BMI 30+, Other (See Below) Other Endocrine/Metabolic History: abnormal TSH in Hematologic History: Reports: Anemia Immunologic History: Reports: None Oncologic (Cancer) History: Reports: None Dermatologic History: Reports: None - Infectious Disease History Infectious Disease History: Reports: Influenza - Past Surgical History Head Surgeries/Procedures: Reports: None Female Surgical History: Reports: D&C Social & Family History - Family History Family Medical History: Noncontributory - Tobacco Use Smoking Status *Q: Never Smoker Second Hand Smoke Exposure: No - Caffeine Use Caffeine Use: Reports: Soda - Recreational Drug Use Recreational Drug Use: No - Living Situation & Occupation Living situation: Reports: with Family Occupation: Employed H&P Review of Systems - Review of Systems: Review Of Systems: See Below General: Reports: Malaise. Denies: Fever Pulmonary: Reports: Shortness of Breath, Cough. Denies: Sputum, Hemoptysis Cardiovascular: Reports: Chest Pain (With coughing). Denies: Edema Gastrointestinal: Denies: Abdominal Pain Genitourinary: Denies: Dysuria Psychiatric: Denies: Confusion Exam - Exam Exam: See Below - Vital Signs Vital Signs: Last Vital Signs Temp 98.7 F 01/26/20 21:47 Pulse 94 01/26/20 21:47 Resp 20 01/26/20 21:47 BP 115/81 01/26/20 21:47 Pulse Ox 99 01/26/20 21:47 Weight: 213 lb - Exam Quality Assessment: No: Supplemental Oxygen General: Alert, Oriented Neck: Supple Lungs: Clear to Auscultation, Normal Respiratory Effort Cardiovascular: Regular Rate, Regular Rhythm Extremities: No Pedal Edema - Patient Data Lab Results Last 24 hrs: Laboratory Results - last 24 hr 01/26/20 01/26/20 01/26/20 Range/Units 21:43 22:20 22:20 WBC 4.9 L (5.0-10.0) 10^3/uL RBC 4.52 (4.2-5.4) 10^6/uL Hgb 9.5 L (12.0-16.0) g/dL Hct 31.5 L (37.0-47.0) % MCV 69.7 L (80-100) fL MCH 21.0 L (27.0-34.0) pg MCHC 30.2 L (33.0-35.0) g/dL Plt Count 411 (150-450) 10^3/uL Neut % (Auto) 64.9 (42.2-75.2) % Lymph % (Auto) 28.2 (20.5-50.1) % [place] % (Auto) 6.7 (2-8) % Eos % (Auto) 0.2 L (1.0-3.0) % Baso % (Auto) 0.0 (0.0-1.0) % D-Dimer, Quantitative 735 H (0-400) ng/mL Sodium (136-145) mmol/L Potassium (3.5-5.1) mmol/L Chloride (98-107) mmol/L Carbon Dioxide (21-32) mmol/L Anion Gap (7-13) mEq/L BUN (7-18) mg/dL Creatinine (0.55-1.02) mg/dL Est Cr Clr Drug Dosing mL/min Estimated GFR (MDRD) BUN/Creatinine Ratio (No establ ref range) Glucose (74-99) mg/dL Lactic Acid (0.4-2.0) mmol/L Calcium (8.5-10.1) mg/dL Total Bilirubin (0.2-1.0) mg/dL AST (15-37) U/L ALT (14-59) U/L Alkaline Phosphatase (46-116) U/L Troponin I (0.000-0.056) ng/mL C-Reactive Protein (0.0-0.9) mg/dL Total Protein (6.4-8.2) g/dL Albumin (3.4-5.0) g/dL Globulin Albumin/Globulin Ratio HCG, Qual COVID-19 ([facility]ICIUS) Positive H (NEGATIVE) 01/26/20 01/26/20 01/26/20 Range/Units 22:20 22:20 22:20 WBC (5.0-10.0) 10^3/uL RBC (4.2-5.4) 10^6/uL Hgb (12.0-16.0) g/dL Hct (37.0-47.0) % MCV (80-100) fL MCH (27.0-34.0) pg MCHC (33.0-35.0) g/dL Plt Count (150-450) 10^3/uL Neut % (Auto) (42.2-75.2) % Lymph % (Auto) (20.5-50.1) % [place] % (Auto) (2-8) % Eos % (Auto) (1.0-3.0) % Baso % (Auto) (0.0-1.0) % D-Dimer, Quantitative (0-400) ng/mL Sodium 137 (136-145) mmol/L Potassium 3.7 (3.5-5.1) mmol/L Chloride 101 (98-107) mmol/L Carbon Dioxide 25 (21-32) mmol/L Anion Gap 14.7 H (7-13) mEq/L BUN 8 (7-18) mg/dL Creatinine 0.58 (0.55-1.02) mg/dL Est Cr Clr Drug Dosing 145.44 mL/min Estimated GFR (MDRD) > 60 BUN/Creatinine Ratio 13.8 (No establ ref range) Glucose 100 H (74-99) mg/dL Lactic Acid 1.4 (0.4-2.0) mmol/L Calcium 7.9 L (8.5-10.1) mg/dL Total Bilirubin 0.1 L (0.2-1.0) mg/dL AST 24 (15-37) U/L ALT 42 (14-59) U/L Alkaline Phosphatase 132 H (46-116) U/L Troponin I < 0.017 (0.000-0.056) ng/mL C-Reactive Protein 1.3 H (0.0-0.9) mg/dL Total Protein 8.1 (6.4-8.2) g/dL Albumin 3.6 (3.4-5.0) g/dL Globulin 4.5 Albumin/Globulin Ratio 0.8 HCG, Qual Positive COVID-19 (VINICIUS) (NEGATIVE) Result Diagrams: 01/26/20 22:20 01/26/20 22:20 - Problem List (1) COVID-19 SNOMED Code(s): 426574358 ICD Code: U07.1 - COVID-19 Status: Acute Current Visit: No (2) Depression SNOMED Code(s): 15830920 ICD Code: F32.9 - MAJOR DEPRESSIVE DISORDER, SINGLE EPISODE, UNSPECIFIED Status: Acute Current Visit: No Qualifiers: Depression Type: reactive depression Qualified Code(s): F32.9 - Major depressive disorder, single episode, unspecified (3) Elevated d-dimer SNOMED Code(s): 333131505 ICD Code: R79.89 - OTHER SPECIFIED ABNORMAL FINDINGS OF BLOOD CHEMISTRY Status: Acute Current Visit: No (4) SNOMED Code(s): 11005348 ICD Code: Z34.90 - ENCNTR FOR SUPRVSN OF NORMAL , UNSP, UNSP TRIMESTER Status: Acute Current Visit: No Qualifiers: Weeks of gestation: 31 weeks Qualified Code(s): Z3A.31 - 31 weeks gestation of Problem List Initiated/Reviewed/Updated: Yes Orders Last 24hrs: Active Orders 24 hr Category Date Time Status Admission Diagnosis [ADT] Stat ADT 01/27/20 00:41 Ordered Admission Status [Patient Status] [ADT] Routine ADT 01/27/20 00:41 Active Antiembolic Devices [RC] PER UNIT ROUTINE Care 01/27/20 01:46 Ordered Oxygen Therapy [RC] PRN Care 01/27/20 01:45 Ordered Peripheral IV Care [RC] . DIRECTED Care 01/27/20 01:46 Ordered Up With Assistance [RC] ASDIRECTED Care 01/27/20 01:45 Ordered VTE/DVT Education [RC] PER UNIT ROUTINE Care 01/27/20 01:45 Ordered Vital Signs [RC] Q4H Care 01/27/20 01:45 Ordered Regular Diet [DIET] Diet 01/27/20 Breakfast Ordered BASIC METABOLIC PANEL,BMP [CHEM] AM Lab 01/27/20 05:11 Ordered CBC WITH AUTO DIFF [HEME] AM Lab 01/27/20 05:11 Ordered TROPONIN I [CHEM] AM Lab 01/27/20 05:11 Ordered Acetaminophen [Tylenol] Med 01/27/20 01:45 Ordered 650 mg PO Q4H PRN Enoxaparin [Lovenox] Med 01/27/20 09:00 Ordered 40 mg SUBCUT DAILY Iron Polysaccharides Complex [Ferrex 150] Med 01/27/20 09:00 Ordered 150 mg PO DAILY Ondansetron [Zofran ODT] Med 01/27/20 01:45 Ordered 4 mg PO Q6H PRN Vit with Ca/FA/Iron [ Plus Iron] Med 01/27/20 08:00 Ordered 1 each PO WITHBREAKFAST Sodium Chloride 0.9% [Saline Flush] Med 01/27/20 01:45 Ordered 10 ml FLUSH ASDIRECTED PRN Antiembolic Hose [OM.PC] Per Unit Routine Oth 01/27/20 01:45 Ordered Peripheral IV Insertion Adult [OM.PC] Routine Oth 01/27/20 01:45 Ordered Saline Lock Insert [OM.PC] Routine Oth 01/27/20 01:45 Ordered Resuscitation Status Routine Resus Stat 01/27/20 01:45 Ordered Medication Orders Acetaminophen (Tylenol) 650 mg PO Q4H PRN PRN Reason: Pain (Mild 1-3)/fever Enoxaparin Sodium (Lovenox) 40 mg SUBCUT DAILY [facility] Ondansetron HCl (Zofran Odt) 4 mg PO Q6H PRN PRN Reason: nausea, able to take PO Polysaccharide Iron Complex (Ferrex 150) 150 mg PO DAILY [facility] Prenat Multivit/Snyder/Iron/Folic Ac ( Plus Iron) 1 each PO WITHBREAKFAST [facility] Sodium Chloride (Saline Flush) 10 ml FLUSH ASDIRECTED PRN PRN Reason: Keep Vein Open Assessment/Plan Comment:: 24-year-old lady with a history of anxiety. She is few weeks . Diagnosis COVID-19 1 week prior to presentation Resented to the ER with increasing shortness of breath. COVID -19 infection We'll monitor the patient closely I will not order further imaging studies given the patient's early Symptomatic treatment Anxiety Continue Zoloft Avoid Atarax in first trimester DVT prophylaxis with subcutaneous heparin
[2020-01-27 07:18] LABS: ANION GAP 15.2 mEq/L (7-13); CHLORIDE,CL 101 mmol/L (98-107); SODIUM,NA 137 mmol/L (136-145)
[2020-01-27] MEDS ORDERED: Prenatal Multivitamin with Calcium/Folic Acid/Iron Tab PO SCH (08:00)
[2020-01-27 08:27] VITALS: BP 113/72; PULSE 68
[2020-01-27] MEDS ORDERED: Enoxaparin 40 MG/0.4 ML Syringe SUBCUT SCH (09:00)
[2020-01-27] MEDS ORDERED: Iron Polysaccharides Complex 150 MG Cap PO SCH (09:00)
[2020-01-27] MEDS ORDERED: Potassium Chloride 10 MEQ Tab.ER PO ONE (09:14)
--- NOTE | 2020-01-27 10:25 | PCM.DCSUM1 ---
Discharge Summary - Hospital Course Free Text/Narrative:: 24-year-old lady with a history of anxiety. She is a few weeks . Diagnosed with COVID-19 1 week prior to presentation Resented to the ER with increasing shortness of breath. COVID -19 infection likley covid-19 pneumonia Remained stable No hypoxemia No significant fever We'll discharge home with symptomatic therapy Due to avoid nonsteroidals, use Tylenol as needed Anxiety Will resume Zoloft Avoid Atarax in during Hypokalemia Received replacement Diagnosis: Stroke: No - Discharge Data Discharge Date: 01/27/20 Discharge Disposition: Home, Self-Care 01 Condition: Stable - Referral to Home Health Primary Care Physician: PCP None - Discharge Diagnosis/Problem(s) (1) COVID-19 SNOMED Code(s): 696132684 ICD Code: U07.1 - COVID-19 Status: Acute Current Visit: No (2) Depression SNOMED Code(s): 68180955 ICD Code: F32.9 - MAJOR DEPRESSIVE DISORDER, SINGLE EPISODE, UNSPECIFIED Status: Acute Current Visit: No Qualifiers: Depression Type: reactive depression Qualified Code(s): F32.9 - Major depressive disorder, single episode, unspecified (3) Elevated d-dimer SNOMED Code(s): 561965811 ICD Code: R79.89 - OTHER SPECIFIED ABNORMAL FINDINGS OF BLOOD CHEMISTRY Status: Acute Current Visit: No (4) SNOMED Code(s): 64278460 ICD Code: Z34.90 - ENCNTR FOR SUPRVSN OF NORMAL , UNSP, UNSP TRIMESTER Status: Acute Current Visit: No Qualifiers: Weeks of gestation: 31 weeks Qualified Code(s): Z3A.31 - 31 weeks gestation of - Discharge Plan *PRESCRIPTION DRUG MONITORING PROGRAM REVIEWED*: Not Applicable *COPY OF PRESCRIPTION DRUG MONITORING REPORT IN PATIENT SHELLIE: Not Applicable Home Medications: Home Meds Sertraline [Zoloft] 50 mg PO DAILY 02/17/19 [History] Iron Polysaccharides Complex [Ferrex 150] 150 mg PO DAILY cap 01/27/20 [Rx] Vit with Ca/FA/Iron [ Plus Iron] 1 each PO WITHBREAKFAST tablet 01/27/20 [Rx] Oxygen Therapy Mode: Room Air Patient Handouts: COVID-19 Frequently Asked Questions, COVID-19, Care, and COVID-19, Infection Prevention in the Home, Prevent the Spread of COVID-19 if You Are Sick - [facility] Referrals: Bowen Carmichael MD [Physician] - (in 2-3 days - telemedicine) - Discharge Summary/Plan Comment DC Time >30 min.: No - General Info Date of Service: 01/27/20 Functional Status: Reports: Tolerating Diet - Review of Systems General: Denies: Fever, Weakness Pulmonary: Denies: Shortness of Breath, Pleuritic Chest Pain, Cough, Sputum, Hemoptysis, Wheezing Cardiovascular: Denies: Chest Pain, Edema Gastrointestinal: Denies: Abdominal Pain Genitourinary: Denies: Dysuria Neurological: Denies: Confusion - Patient Data Vitals - Most Recent: Last Vital Signs Temp 99.7 F 01/27/20 08:25 Pulse 68 01/27/20 08:25 Resp 16 01/27/20 08:25 BP 113/72 01/27/20 08:25 Pulse Ox 98 01/27/20 08:25 Weight - Most Recent: 213 lb I&O - Last 24 hours: Intake & Output 01/26/20 01/27/20 01/27/20 22:59 06:59 14:59 Intake Total 360 Balance 360 Lab Results - Last 24 hrs: Laboratory Results - last 24 hr 01/26/20 01/26/20 01/26/20 Range/Units 21:43 22:20 22:20 WBC 4.9 L (5.0-10.0) 10^3/uL RBC 4.52 (4.2-5.4) 10^6/uL Hgb 9.5 L (12.0-16.0) g/dL Hct 31.5 L (37.0-47.0) % MCV 69.7 L (80-100) fL MCH 21.0 L (27.0-34.0) pg MCHC 30.2 L (33.0-35.0) g/dL Plt Count 411 (150-450) 10^3/uL Neut % (Auto) 64.9 (42.2-75.2) % Lymph % (Auto) 28.2 (20.5-50.1) % [place] % (Auto) 6.7 (2-8) % Eos % (Auto) 0.2 L (1.0-3.0) % Baso % (Auto) 0.0 (0.0-1.0) % D-Dimer, Quantitative 735 H (0-400) ng/mL Sodium (136-145) mmol/L Potassium (3.5-5.1) mmol/L Chloride (98-107) mmol/L Carbon Dioxide (21-32) mmol/L Anion Gap (7-13) mEq/L BUN (7-18) mg/dL Creatinine (0.55-1.02) mg/dL Est Cr Clr Drug Dosing mL/min Estimated GFR (MDRD) BUN/Creatinine Ratio (No establ ref range) Glucose (74-99) mg/dL Lactic Acid (0.4-2.0) mmol/L Calcium (8.5-10.1) mg/dL Total Bilirubin (0.2-1.0) mg/dL AST (15-37) U/L ALT (14-59) U/L Alkaline Phosphatase (46-116) U/L Troponin I (0.000-0.056) ng/mL C-Reactive Protein (0.0-0.9) mg/dL Total Protein (6.4-8.2) g/dL Albumin (3.4-5.0) g/dL Globulin Albumin/Globulin Ratio HCG, Qual COVID-19 (VINICIUS) Positive H (NEGATIVE) 01/26/20 01/26/20 01/26/20 Range/Units 22:20 22:20 22:20 WBC (5.0-10.0) 10^3/uL RBC (4.2-5.4) 10^6/uL Hgb (12.0-16.0) g/dL Hct (37.0-47.0) % MCV (80-100) fL MCH (27.0-34.0) pg MCHC (33.0-35.0) g/dL Plt Count (150-450) 10^3/uL Neut % (Auto) (42.2-75.2) % Lymph % (Auto) (20.5-50.1) % [place] % (Auto) (2-8) % Eos % (Auto) (1.0-3.0) % Baso % (Auto) (0.0-1.0) % D-Dimer, Quantitative (0-400) ng/mL Sodium 137 (136-145) mmol/L Potassium 3.7 (3.5-5.1) mmol/L Chloride 101 (98-107) mmol/L Carbon Dioxide 25 (21-32) mmol/L Anion Gap 14.7 H (7-13) mEq/L BUN 8 (7-18) mg/dL Creatinine 0.58 (0.55-1.02) mg/dL Est Cr Clr Drug Dosing 145.44 mL/min Estimated GFR (MDRD) > 60 BUN/Creatinine Ratio 13.8 (No establ ref range) Glucose 100 H (74-99) mg/dL Lactic Acid 1.4 (0.4-2.0) mmol/L Calcium 7.9 L (8.5-10.1) mg/dL Total Bilirubin 0.1 L (0.2-1.0) mg/dL AST 24 (15-37) U/L ALT 42 (14-59) U/L Alkaline Phosphatase 132 H (46-116) U/L Troponin I < 0.017 (0.000-0.056) ng/mL C-Reactive Protein 1.3 H (0.0-0.9) mg/dL Total Protein 8.1 (6.4-8.2) g/dL Albumin 3.6 (3.4-5.0) g/dL Globulin 4.5 Albumin/Globulin Ratio 0.8 HCG, Qual Positive COVID-19 (VINICIUS) (NEGATIVE) 01/27/20 01/27/20 Range/Units 06:35 06:35 WBC 5.8 (5.0-10.0) 10^3/uL RBC 4.47 (4.2-5.4) 10^6/uL Hgb 9.3 L (12.0-16.0) g/dL Hct 31.2 L (37.0-47.0) % MCV 69.8 L (80-100) fL MCH 20.8 L (27.0-34.0) pg MCHC 29.8 L (33.0-35.0) g/dL Plt Count 384 (150-450) 10^3/uL Neut % (Auto) 73.2 (42.2-75.2) % Lymph % (Auto) 20.4 L (20.5-50.1) % [place] % (Auto) 6.2 (2-8) % Eos % (Auto) 0.2 L (1.0-3.0) % Baso % (Auto) 0.0 (0.0-1.0) % D-Dimer, Quantitative (0-400) ng/mL Sodium 137 (136-145) mmol/L Potassium 3.2 L (3.5-5.1) mmol/L Chloride 101 (98-107) mmol/L Carbon Dioxide 24 (21-32) mmol/L Anion Gap 15.2 H (7-13) mEq/L BUN 7 (7-18) mg/dL Creatinine 0.68 (0.55-1.02) mg/dL Est Cr Clr Drug Dosing 124.05 mL/min Estimated GFR (MDRD) > 60 BUN/Creatinine Ratio (No establ ref range) Glucose 125 H (74-99) mg/dL Lactic Acid (0.4-2.0) mmol/L Calcium 7.8 L (8.5-10.1) mg/dL Total Bilirubin (0.2-1.0) mg/dL AST (15-37) U/L ALT (14-59) U/L Alkaline Phosphatase (46-116) U/L Troponin I < 0.017 (0.000-0.056) ng/mL C-Reactive Protein (0.0-0.9) mg/dL Total Protein (6.4-8.2) g/dL Albumin (3.4-5.0) g/dL Globulin Albumin/Globulin Ratio HCG, Qual COVID-19 (VINICIUS) (NEGATIVE) Med Orders - Current: Current Medications Acetaminophen (Tylenol) 650 mg PO Q4H PRN PRN Reason: Pain (Mild 1-3)/fever Enoxaparin Sodium (Lovenox) 40 mg SUBCUT DAILY [facility] Last Admin: 01/27/20 08:24 Dose: 40 mg Documented by: Ondansetron HCl (Zofran Odt) 4 mg PO Q6H PRN PRN Reason: nausea, able to take PO Polysaccharide Iron Complex (Ferrex 150) 150 mg PO DAILY [facility] Last Admin: 01/27/20 08:24 Dose: 150 mg Documented by: Prenat Multivit/[place]/Iron/Folic Ac ( Plus Iron) 1 each PO WITHBREAKFAST [facility] Last Admin: 01/27/20 08:24 Dose: 1 each Documented by: Sodium Chloride (Saline Flush) 10 ml FLUSH ASDIRECTED PRN PRN Reason: Keep Vein Open Discontinued Medications Diphenhydramine HCl (Benadryl) 25 mg PO QID PRN PRN Reason: anxiety, itching Potassium Chloride (Klor-Con 10) 40 meq PO ONETIME ONE Stop: 01/27/20 09:15 - Exam General: Reports: Alert, Oriented Neck: Reports: Supple Lungs: Reports: Clear to Auscultation, Normal Respiratory Effort Cardiovascular: Reports: Regular Rate, Regular Rhythm Extremities: No Pedal Edema
== END 2020-01-27 11:05 | disposition home or self-care (01) ==
LOC: DL.ED 21:41 → DL.MS 01-27 00:59
PROVIDERS: ADMIT Internal Medicine; ATTEND Internal Medicine
DX: O98.511 Other viral diseases complicating pregnancy, first trimester (principal); U07.1 COVID-19; O99.341 Other mental disorders complicating pregnancy, first trimester; F41.9 Anxiety disorder, unspecified; F32.9 Major depressive disorder, single episode, unspecified; O99.211 Obesity complicating pregnancy, first trimester; E66.9 Obesity, unspecified; O99.281 Endocrine, nutritional and metabolic diseases complicating pregnancy, first trimester; E87.1 Hypo-osmolality and hyponatremia; Z88.0 Allergy status to penicillin; Z88.8 Allergy status to other drugs, medicaments and biological substances; Z3A.01 Less than 8 weeks gestation of pregnancy
CPT/HCPCS: 36415; 80048; 80053; 83605; 84484; 84703; 85025; 85379; 86140; 87635; 99285; A9270; J1650; 96372; 99284; G0378; U0002

== ENCOUNTER 2020-02-09 17:31 | Emergency (ER) | payer MEDICAID, OTHER ==
[2020-02-09 17:57] VITALS: BP 132/73; PULSE 78
--- NOTE | 2020-02-09 18:08 | EDM.PDOC ---
ED HPI GENERAL MEDICAL PROBLEM - General Stated Complaint: SHARP CHEST PAIN ON LEFT SIDE, DURING BREATHING Time Seen by Provider: 02/09/20 17:55 Source of Information: Reports: Patient History Limitations: Reports: No Limitations - History of Present Illness INITIAL COMMENTS - FREE TEXT/NARRATIVE: This 24 yo female patient reports to the ED with left sided chest pain that started 2 hours prior to her arrival in the ED. The patient reports she only has pain with taking a deep breath or bending over to tie her shoe. The patient reports she has been sleeping all day and does not recall any specific injuries. The patient reports she is currently 8 weeks at this time. Onset: Today Duration: Hour(s): (2), Intermittent Location: Reports: Chest (left sided chest wall) Quality: Reports: Ache, Sharp Severity: Moderate Improves with: Reports: Rest Worsens with: Reports: Movement Context: Reports: Other Associated Symptoms: Reports: Chest Pain (left sided) Treatments GAS PUMPER: Denies: Acetaminophen - Related Data Allergies Allergy/AdvReac Type Severity Reaction Status Date / Time amoxicillin Allergy Airway Verified 02/09/20 18:08 Tightness diphenhydramine HCl Allergy Cannot Verified 02/09/20 18:08 [From Benadryl] Remember Penicillins Allergy Shortness Verified 02/09/20 18:08 of Breath Home Meds: Home Meds Sertraline [Zoloft] 50 mg PO DAILY 02/17/19 [History] Iron Polysaccharides Complex [Ferrex 150] 150 mg PO DAILY cap 01/27/20 [Rx] Vit with Ca/FA/Iron [ Plus Iron] 1 each PO WITHBREAKFAST tablet 01/27/20 [Rx] Past Medical History - Past Health History Medical/Surgical History: Denies Medical/Surgical History HEENT History: Reports: None Cardiovascular History: Reports: None Respiratory History: Reports: None Gastrointestinal History: Reports: None Genitourinary History: Reports: Pyelonephritis, Other (See Below) Other Genitourinary History: UTI in [employer]IL[employer]KER History: Reports: , Spontaneous Musculoskeletal History: Reports: None Neurological History: Reports: None Psychiatric History: Reports: Addiction, Anxiety, Depression, Emotional Problems, Suicidal Ideation Endocrine/Metabolic History: Reports: Obesity/BMI 30+, Other (See Below) Other Endocrine/Metabolic History: abnormal TSH in Hematologic History: Reports: Anemia Immunologic History: Reports: None Oncologic (Cancer) History: Reports: None Dermatologic History: Reports: None - Infectious Disease History Infectious Disease History: Reports: Influenza - Past Surgical History Head Surgeries/Procedures: Reports: None Female Surgical History: Reports: D&C Social & Family History - Family History Family Medical History: Noncontributory - Caffeine Use Caffeine Use: Reports: Soda - Living Situation & Occupation Living situation: Reports: with Family Occupation: Employed ED ROS GENERAL - Review of Systems Review Of Systems: Comprehensive ROS is negative, except as noted in HPI. ED EXAM, GENERAL - Physical Exam Exam: See Below Exam Limited By: No Limitations General Appearance: Alert, WD/WN, Mild Distress, Obese Eye Exam: Bilateral Eye: EOMI, Normal Inspection, PERRL Ears: Normal External Exam, Normal Canal, Hearing Grossly Normal, Normal TMs Nose: Normal Inspection, Normal Mucosa, No Blood Throat/Mouth: Normal Inspection, Normal Lips, Normal Teeth, Normal Gums, Normal Oropharynx, Normal Voice, No Airway Compromise Head: Atraumatic, Normocephalic Neck: Normal Inspection, Supple, Non-Tender, Full Range of Motion Respiratory/Chest: No Respiratory Distress, Lungs Clear, Normal Breath Sounds, No Accessory Muscle Use, Other (left sided chest wall tenderness to palpation) Cardiovascular: Normal Peripheral Pulses, Regular Rate, Rhythm, No Edema, No Gallop, No JVD, No Murmur, No Rub GI/Abdominal: Normal Bowel Sounds, Soft, Non-Tender, No Distention, No Abnormal Bruit, No Mass, Pelvis Stable, Other (obese) (Female) Exam: Deferred Rectal (Female) Exam: Deferred Back Exam: Normal Inspection, Full Range of Motion, NT Extremities: Normal Inspection, Normal Range of Motion, Non-Tender, Normal Capillary Refill, No Pedal Edema Neurological: Alert, Oriented, CN II-XII Intact, Normal Cognition, Normal Gait, Normal Reflexes, No Motor/Sensory Deficits Psychiatric: Normal Affect, Normal Mood Skin Exam: Warm, Dry, Intact, Normal Color, No Rash Lymphatic: No Adenopathy Course - Vital Signs Last Recorded V/S: Last Vital Signs Temp 36.6 C 02/09/20 17:55 Pulse 78 02/09/20 17:55 Resp 25 H 02/09/20 17:55 BP 132/73 02/09/20 17:55 Pulse Ox 100 02/09/20 17:55 - Orders/Labs/Meds Orders: Active Orders 24 hr Category Date Time Status EKG Documentation Completion [RC] STAT Care 02/09/20 17:45 Ordered Labs: Laboratory Tests 02/09/20 02/09/20 Range/Units 18:15 18:15 WBC 8.4 (5.0-10.0) 10^3/uL RBC 4.43 (4.2-5.4) 10^6/uL Hgb 9.8 L (12.0-16.0) g/dL Hct 32.4 L (37.0-47.0) % MCV 73.1 L D (80-100) fL MCH 22.1 L (27.0-34.0) pg MCHC 30.2 L (33.0-35.0) g/dL Plt Count 410 (150-450) 10^3/uL Neut % (Auto) 72.3 (42.2-75.2) % Lymph % (Auto) 19.2 L (20.5-50.1) % [place] % (Auto) 7.4 (2-8) % Eos % (Auto) 1.0 (1.0-3.0) % Baso % (Auto) 0.1 (0.0-1.0) % Sodium 134 L (136-145) mmol/L Potassium 3.9 (3.5-5.1) mmol/L Chloride 100 (98-107) mmol/L Carbon Dioxide 24 (21-32) mmol/L Anion Gap 13.9 H (7-13) mEq/L BUN 8 (7-18) mg/dL Creatinine 0.60 (0.55-1.02) mg/dL Est Cr Clr Drug Dosing TNP Estimated GFR (MDRD) > 60 BUN/Creatinine Ratio 13.3 (No establ ref range) Glucose 88 (74-99) mg/dL Calcium 8.3 L (8.5-10.1) mg/dL Total Bilirubin 0.3 (0.2-1.0) mg/dL AST 12 L (15-37) U/L ALT 19 (14-59) U/L Alkaline Phosphatase 118 H (46-116) U/L Troponin I < 0.017 (0.000-0.056) ng/mL Total Protein 7.7 (6.4-8.2) g/dL Albumin 3.5 (3.4-5.0) g/dL Globulin 4.2 Albumin/Globulin Ratio 0.8 Departure - Departure Time of Disposition: 19:11 Disposition: Home, Self-Care 01 Condition: Fair Clinical Impression: Chest wall muscle strain Qualifiers: Encounter type: initial encounter Qualified Code(s): S29.011A - Strain of muscle and tendon of front wall of thorax, initial encounter Instructions: Nonspecific Chest Pain, Adult, Yhtg-[id number], Muscle Strain, [id number] Forms: ED Department Discharge Care Plan Goals: The patient was advised of the examination, EKG and lab results during the visit. The patient was advised to take Tylenol as directed for temporary symptom relief. If the patient has any additional symptoms or concerns, the patient should either return to the emergency department or visit her primary care facility. Sepsis Event Note (ED) - Evaluation Sepsis Screening Result: No Definite Risk - Focused Exam Vital Signs: Vital Signs Temp Pulse Resp BP Pulse Ox 02/09/20 17:55 36.6 C 78 25 H 132/73 100 - My Orders Last 24 Hours: My Active Orders 02/09/20 17:45 EKG Documentation Completion [RC] STAT - Assessment/Plan Last 24 Hours: My Active Orders 02/09/20 17:45 EKG Documentation Completion [RC] STAT
[2020-02-09 18:43] LABS: ANION GAP 13.9 mEq/L (7-13); CHLORIDE,CL 100 mmol/L (98-107); SODIUM,NA 134 mmol/L (136-145)
== END 2020-02-09 19:27 | disposition home or self-care (01) ==
LOC: DL.ED 17:31
DX: O9A.211 Injury, poisoning and certain other consequences of external causes complicating pregnancy, first trimester (principal); S29.011A Strain of muscle and tendon of front wall of thorax, initial encounter; O99.341 Other mental disorders complicating pregnancy, first trimester; F41.9 Anxiety disorder, unspecified; F32.9 Major depressive disorder, single episode, unspecified; O99.011 Anemia complicating pregnancy, first trimester; Z88.0 Allergy status to penicillin; Z88.1 Allergy status to other antibiotic agents; Z88.8 Allergy status to other drugs, medicaments and biological substances; Z79.899 Other long term (current) drug therapy; X58.XXXA Exposure to other specified factors, initial encounter; Z3A.08 8 weeks gestation of pregnancy
CPT/HCPCS: 36415; 80053; 84484; 85025; 93005; 99283; 99285-25

== ENCOUNTER 2020-09-26 04:46 | Inpatient (IN) | payer MEDICAID ==
[2020-09-26] MEDS ORDERED: Acetaminophen 325 MG Tab PO PRN ×2 (05:54→10:56)
[2020-09-26] MEDS ORDERED: Misoprostol 400 MCG (4 X 100 MCG TAB) RECTAL PRN ×2 (05:54→10:56)
[2020-09-26] MEDS ORDERED: Sodium Chloride 0.9% 10 ML Syringe FLUSH PRN ×2 (05:54→10:56)
[2020-09-26] MEDS ORDERED: Ondansetron 4 MG/2 ML SDV IVPUSH PRN (05:54)
[2020-09-26] MEDS ORDERED: Carboprost Tromethamine 250 MCG/1 ML Amp IM PRN ×2 (05:54→10:56)
[2020-09-26] MEDS ORDERED: Methylergonovine 0.2 MG/1 ML Amp IM PRN (05:54)
[2020-09-26] MEDS ORDERED: Tranexamic Acid 1,000 MG in Sodium Chloride 0.9% 100 ML IV PRN ×2 (05:54→10:56)
[2020-09-26] MEDS ORDERED: Lidocaine 1% 30 ML SDV INJECT PRN (05:54)
[2020-09-26] MEDS ORDERED: Lactated Ringers 1,000 ML IV ONE (05:54)
[2020-09-26] MEDS ORDERED: Oxytocin/Normal Saline 30 UNIT/500 ML BAG IV SCH (06:00)
[2020-09-26] MEDS: Lactated Ringers 1,000 ML IV SCH ×2 (06:18→08:49)
[2020-09-26] MEDS ORDERED: fentaNYL 100 MCG/2 ML SDV ONE (08:29)
[2020-09-26] MEDS ORDERED: EPINEPHrine 1 MG/1 ML Amp ONE (08:29)
[2020-09-26] MEDS ORDERED: Sodium Chloride 0.9% 20 ML SDV ONE (08:30)
[2020-09-26] MEDS ORDERED: fentaNYL 100 MCG/2 ML SDV ITHECAL ONE (08:30)
[2020-09-26] MEDS ORDERED: Sodium Bicarbonate 4.2% 2.5 MEQ/5 ML SDV ONE ×2 (08:30)
--- NOTE | 2020-09-26 08:34 | OBOUT ---
DATE: 09/26/2020 TIME: 5:30 to 5:50. REASON FOR NST: 1. Intrauterine at 38 and 4/7 weeks by 6 and 2/7 weeks ultrasound. 2. Contractions in labor starting at 2 a.m. 3. Vaginal leaking with spontaneous rupture of membranes with positive AmniSure. Leaking started at 3 a.m. 4. GBS positive. 5. Allergies to amoxicillin, penicillin, but can take cephalosporin. Ancef has now been started. 6. History of coronavirus disease diagnosis back in December 2019 with it being pending now. 7. History of hemorrhage. 8. Maternal anemia with hemoglobin 9.6 upon admission. 9. Rubella equivocal. Needs MMR . 10.General anxiety disorder during the , on Zoloft. 11.Betamethasone given x2 back in July on and during this for concerns with oligohydramnios that did resolve. 12.G5, P2-1-1-2. NST INTERPRETATION: During this time period, heart tone baseline is approximately 135, and at least two 15 x 15 beat per minute accelerations making this strip reactive and also noted to be reassuring. Tocometer reveals potential of 3 contractions during this time period felt by the patient. ASSESSMENT: 1. Nonstress test, reactive and reassuring. 2. Tocometer with contractions. PLAN: During this NST, vaginal exam reveals to be 6 to 6.5 cm. Prior to that, blood pressure was 119/79, heart rate 83, temperature 97.4. AmniSure was done. This was positive. Labs were done. COVID testing is actually pending at this point in time. The patient was just evaluated at approximately 6:30 this morning shortly before this dictation and she was still at about 6 cm, 75% effaced, 0 to -1 station, vertex suspected, and leaking clear fluid. Ancef now has been given. We will continue to follow clinically and closely. Please see history and physical to be done in conjunction with medical student. The patient has been seen and agreed. [facility] /[id number]
--- NOTE | 2020-09-26 08:55 | PCM.SN.2 ---
- Free Text/Narrative Note: Intrathecal. Sitting position, sterile prep and drape. 1% lidocaine w bicarb for skinwheal to L2 L3 interspace. Introducer, 24 ga pencan x 1.Pos CSF, neg heme, neg parasthesia. 20 mcg pf sufenta, 30 mcg pf fentanyl, 0.4 ml pf NS and 6 mg of 0.75% pf marcaine injected after CSF aspiration. Pt to L lateral position. Pr ocedure time 0830 to 0900
--- NOTE | 2020-09-26 09:32 | HP ---
PRIMARY OB PROVIDER: Bowen Carmichael MD HISTORY OF PRESENT ILLNESS/CHIEF COMPLAINT: Nima Cai is a 25- year-old female, G5, P2-1-1-2 at 38 weeks 4 days with an DARWIN of 10/06/2020 based on 6 weeks 2 days ultrasound on 02/13/2020, who presents with chief complaint of vaginal leaking of a clear fluid. The patient believes she has broken her water. She notes she started having contractions around 2 a.m. this morning about once every 10 minutes, felt in the lower abdomen and radiating to the back. Around 3 a.m., she acutely noticed an increased amount of clear vaginal fluid and decided to seek further evaluation. Her contractions have increased in intensity slightly, otherwise remaining about once every 10 minutes. She last saw her obstetric provider 2 days ago in clinic where she was dilated to 3 cm. OBSTETRIC HISTORY: 1. On 07/05/2015, at 10 weeks 4 days, spontaneous . 2. On 05/25/2016, at 40 weeks 4 days, delivered a term female, 8 pounds 5.7 ounces. 3. On 05/11/2017, 35 weeks 2 days, delivered a male, 6 pounds 6 ounces. 4. 04/07/2019 at 37 weeks 4 days, delivered a term male at 5 pounds 6 ounces. 5. One child has unfortunately passed from SIDS. GYNECOLOGIC HISTORY: 1. No history of HSV. 2. Cyst of left ovary noted on 04/16/2017 and also observed on 12/23/2018 as reproducible prominent left adnexal cyst measuring 5.5 x 5.2 x 4.0 cm. Also reported on first ultrasound in this noted on 11/23/2018 to be 4.8 x 3.0 x 4.7 cm being cystic lesion in the posterior cul-de-sac with needing repeat ultrasound imaging 6 to 8 weeks to re-evaluate. LABORATORY DATA: ABO/Rh A positive. Antibody screen negative. Rubella antibody equivocal. Rubella IgG antibody index 0.8. Syphilis nonreactive. Hepatitis B surface antigen nonreactive. HIV nonreactive. Gonorrhea not detected. Chlamydia not detected. Hepatitis C antibody nonreactive. 1-hour glucose passed and GBS positive culture. PAST MEDICAL HISTORY: 1. Group B Streptococcus carrier, plus RV culture. 2. History of 2019 novel coronavirus disease in December 2019 and admitted to the hospital for a short period of time. 3. History of hemorrhage. 4. Maternal anemia in . Hemoglobin on admission today 9.6. 5. Depressive disorder. 6. Generalized anxiety disorder. 7. History of delivery. SURGICAL HISTORY: She had vaginal dilation and curettage in 2016. PRIOR TO ADMISSION MEDICATIONS: 1. Sertraline 50 mg. 2. vitamin. 3. Iron polysaccharide 150 mg. 4. Triamcinolone acetonide 0.1% cream. The dosage on the is 27-1 mg. ALLERGIES: 1. Amoxicillin, reaction swelling of the face, throat, lips, tongue/angioedema. 2. Penicillin, reaction shortness of breath, wheezing, chest tightness. 3. Benadryl allergy, unknown reaction type. 4. Diphenhydramine allergy, unknown reaction type. 5. The patient has been able to receive Rocephin and Keflex in the past without reaction. SOCIAL HISTORY: The patient is a never smoker. She has never used smokeless tobacco. She does have some secondhand smoke exposure. She is not currently using alcohol. She denies any drug use. She currently lives in [facility] with her boyfriend, father of the baby and their children, 2 girls and 5 boys. FAMILY HISTORY: Mother has a history of cirrhosis. She has a negative family history of asthma, arrhythmias, seizures, heart disease, sudden , defects, anesthesia problems, or bleeding problems. REVIEW OF SYSTEMS: GENERAL: No recent illness, fevers, chills, appetite change, fatigue, malaise. DERMATOLOGIC. No changes to skin. RESPIRATORY: No cough, wheeze, shortness of breath. CARDIOVASCULAR: No chest pain. GASTROINTESTINAL: No changes to bowel or bladder. GENITOURINARY: No vaginal bleeding. No pain in the vaginal area. NEUROMUSCULAR: No joint pain or muscle pain. No muscle weakness. PHYSICAL EXAMINATION: ADMISSION VITAL SIGNS: Blood pressure 119/79, pulse 83, temperature 97.4. Height 5 feet 6 inches, weight 220 pounds. Pregravid weight 170 pounds. GENERAL APPEARANCE: She appears alert, in no acute distress. Generally, well appearing. LUNGS: Clear to auscultation bilaterally with no adventitial breath sounds and symmetric air entry. HEART: S1, S2. Regular rate and rhythm. No murmurs appreciated. ABDOMEN: Gravid, nontender. GENITOURINARY: heart tones category 1 with baseline of 140s and moderate variability. It is reactive and reassuring with no decelerations. Tocometry revealing contractions once every 10 minutes. PELVIC EXAM: Normal female external genitalia, vulva, vagina. Cervix is 6 cm dilated, 75% effaced. Bag is ruptured. EXTREMITIES: No redness or tenderness in the calves or pain on dorsiflexion. No peripheral edema. SKIN: No rashes, lesions noted. Normal color and turgor. ASSESSMENT AND PLAN: 1. Nima Cai is a 25-year-old, G5, P2-1-1-2 at 38 weeks 4 days confirmed with a 6 weeks and 2 days ultrasound, admitted for labor. 2. Contractions starting at 2 a.m. 3. Vaginal leaking/spontaneous rupture of membranes around 3 a.m. 4. Group B Streptococcus positive with allergies to amoxicillin and penicillin, but can take cephalosporins. 5. History of coronavirus disease 2018, diagnosed in December 2019. 6. History of hemorrhage. 7. Maternal anemia in . Hemoglobin on admission 9.6. 8. Generalized anxiety disorder and depression, on sertraline 50 mg. 9. G5, P2-1-1-2. 10.Rubella equivocal, is an MMR candidate . 11.Betamethasone was given times 2, 08/21/2020 to 08/22/2020. 12.Maternal well being overall is good. well being overall, heart tracing is category 1. Labor is occurring spontaneously and currently progressing as expected. She is GBS status positive and is currently receiving Ancef 2 g/50 mL starting around 6 a.m. Pain management will be an intrathecal. 13.The patient was discussed with Dr. Bowen Carmichael and we will proceed with routine cares. Seen with medical student. Patient was personally seen and examined with the medical student practitioner student, Presley Walsh. I reviewed the noted scribed on my behalf and necessary changes have been made to reflect my opinion on the history, exam, assessment, and plan [facility][id number] [facility]
[2020-09-26] MEDS ORDERED: Oxytocin 10 Units/1 ML SDV IM PRN (10:56)
[2020-09-26] MEDS ORDERED: Simethicone 80 MG Tab.Chew PO PRN (10:56)
[2020-09-26] MEDS ORDERED: Zolpidem 5 MG Tab PO PRN (10:56)
[2020-09-26] MEDS ORDERED: Benzocaine/Menthol 20%-0.5% Spray 56 GM Canister TOP PRN (10:56)
[2020-09-26] MEDS ORDERED: cefTRIAXone 1 GM in Sodium Chloride 0.9% 50 ML IV ONE ×2 (11:45→13:00)
[2020-09-26] MEDS: Ibuprofen 800 MG Tab PO PRN ×2 (14:33→22:52)
[2020-09-26] MEDS: Docusate Sodium 100 MG Cap PO PRN (21:44)
--- NOTE | 2020-09-27 04:54 | DEL ---
DATE: 09/26/2020 PREOPERATIVE DIAGNOSES: 1. Intrauterine at 38 weeks 4 days based on last menstrual period and confirmed with a 6-week 2-day ultrasound, admitted for labor. 2. Spontaneous rupture of membranes around 3 a.m. on 09/26/2020. 3. Group B Streptococcus positive. 4. History of coronavirus disease 2019, diagnosed in 12/2019. 5. History of hemorrhage. 6. Maternal anemia affecting . Hemoglobin on admission 9.6. 7. Generalized anxiety disorder and depression, on sertraline 50 mg. 8. G5, P2-1-1-2. 9. Rubella equivocal, candidate for MMR vaccination. 10.Betamethasone given x2, 08/21/2020 and 08/22/2020. POSTOPERATIVE DIAGNOSES: 1. G5 now para 3-1-1-3 with intrauterine at 38 weeks 4 days based on last menstrual period and confirmed with a 6-week 2-day ultrasound, admitted for labor. 2. Spontaneous rupture of membranes around 3 a.m. 3. Group B Streptococcus positive with allergies to amoxicillin and penicillin. Received Ancef 2 starting around 6 a.m. The patient has taken cephalosporins without reaction in the past. 4. History of coronavirus disease 2019, diagnosed in 12/2019. 5. History of hemorrhage. Tranexamic acid was given after delivery of baby for prophylaxis of maternal hemorrhage. 6. Maternal anemia in . Hemoglobin on admission was 9.6. Estimated blood loss 750 mL post delivery. We will continue to monitor closely with repeat CBC in approximately 6 hours and morning CBC as well. 7. Generalized anxiety disorder and depression, on sertraline 50 mg. 8. -1-1-3. 9. Rubella equivocal, candidate for MMR vaccination . 10.Betamethasone given x2, 08/21/2020 and 08/22/2020. Pain management accomplished via intrathecal x1. 11.Estimated blood loss 750 mL due to uterine atony and retained placental membranes requiring bimanual exam with finger uterine curettage with 2 passes and with removal of placental membranes and clots. Also requires Cytotec 800 mg rectally and Pitocin per protocol given IV. PROCEDURES PERFORMED: Non-stress test, intrathecal x1, spontaneous vaginal delivery, bimanual uterine exam, finger uterine curettage x2 with removal of placental membranes and clots. ANESTHESIA/ANALGESIA: Intrathecal x1. ESTIMATED BLOOD LOSS: 750 mL. FINDINGS: Female infant with score of 6 and 9 at one and five minutes respectively, weight to be determined and updated in [facility]. SUMMARY OF EVENTS: On this date at 10:33, this gravid 5 now para 3-1-1-3, group B Streptococcus positive mother treated with Ancef 2 g per 50 mL delivered a viable female infant whose weight was 3540 g, 7 pounds 13 ounces with scores of 6 and 9 at one and five minutes respectively. Delivery was accomplished spontaneously and vaginally to a sterile field under intrathecal x1 for anesthesia. Position was CAMPOS. No complications noted from umbilical cord. After delivery, was stimulated, placed on mother's chest and bulb syringed per Nursing to achieve respiratory effort. Infant was subsequently moved to the warmer for more aggressive stimulation and respiratory management. Cord clamping was delayed approximately 1 minute until pulsations stopped. Cord was then clamped and cut by father of the baby at bedside. Complications with delivery included uterine atony, which was managed with Pitocin 30 units administered IV after placental delivery per protocol and Cytotec 800 mg administered rectally. Tranexamic acid was also given prophylactically after delivery of baby per mother's history of hemorrhage in the past. Due to excessive bleeding and appearance of multiple clots, a bimanual uterine exam was also undertaken with finger uterine curettage passes x2, which resulted in removal of placental membranes and clots. Blood loss subsequently decreased substantially. Total blood loss estimated at 750 mL. Prior to this, placenta with a 3-vessel cord was delivered spontaneously, intact, and completely. Cord blood was obtained. Bilateral periurethral abrasions were noted and were nonbleeding, not repaired. No perineal lacerations were noted. Because of need for bimanual uterine exam and finger uterine currettage, 1 g Rocephin IV will be given for prophylaxis. At this time, infant and mother are recovering well in the patient's room. Mother plans to bottle feed at this time. We will monitor her hemoglobin and vital signs closely and take appropriate management strategies as needed. This note is being scribed on behalf of Dr. Bowen Carmichael. Seen with medical student. Patient was personally seen and examined with the medical student practitioner student, Presley Walsh. I reviewed the noted scribed on my behalf and necessary changes have been made to reflect my opinion on the history, exam, assessment, and plan SEAN /[id number] MTDD
[2020-09-27] MEDS: Ibuprofen 800 MG Tab PO PRN (08:43)
[2020-09-27] MEDS: Docusate Sodium 100 MG Cap PO PRN (08:43)
[2020-09-27] MEDS ORDERED: Sertraline 50 MG Tab PO SCH (09:00)
[2020-09-27] MEDS ORDERED: Prenatal Multivitamin with Calcium/Folic Acid/Iron Tab PO SCH (09:00)
[2020-09-27 10:20] VITALS: BP 93/56; PULSE 64
--- NOTE | 2020-09-28 04:12 | DISCH ---
PREOPERATIVE DIAGNOSES: 1. Intrauterine at 38 4/7 gestation based on last menstrual period and confirmed with ultrasound at 6 2/7 gestation, admitted for labor. 2. Spontaneous rupture of membranes at 3 a.m. on 09/26/2020. 3. Group B Streptococcus positive. 4. History of coronavirus disease in 2019, diagnosed on 12/2019. 5. History of hemorrhage. 6. Maternal anemia affecting . Hemoglobin on admission 9.6. 7. Generalized anxiety disorder and depression, on sertraline 50 mg daily. 8. G5, P2-1-1-2. 9. Rubella equivocal, candidate for MMR vaccination. 10.Betamethasone given x2, 08/21/2020 and 08/22/2020. 11.A positive blood type. POSTOPERATIVE DIAGNOSES: 1. G5, P3-1-1-3 following vaginal term delivery at 38 4/7 gestation based on LMP and confirmed with ultrasound at 6 2/7 gestation 2. Spontaneous rupture of membranes. 3. Group B Streptococcus positive. 4. Allergies to amoxicillin and penicillin. She received Ancef 2 g. The patient has taken cephalosporins without reactions in the past. Adequately treated. 5. History of coronavirus disease, diagnosed in 12/2019. 6. History of hemorrhage. 7. Maternal anemia in . Hemoglobin on admission was 9.6. 8. Generalized anxiety disorder and depression, on sertraline 50 mg daily. 9. G5, P3-1-1-3. 10.Rubella equivocal, candidate for MMR vaccination . 11.Betamethasone given x2, 08/21/2020 and 08/22/2020. 12.Intrathecal x1. 13.A positive blood type, no indication for RhoGAM. 14. hemorrhage. EBL 750 mL. Treated with tranexamic acid, Cytotec 800 mg, and Pitocin IV per protocol. 15.Uterine atony. Bimanual uterine massage and manual uterine curettage passes x2, resulted in removal of placental membranes and clots. 16.Periurethral abrasions, no repair necessary. SUBJECTIVE: No complaints. Denies chest pain, shortness of breath, nausea, vomiting, fevers, chills. Ambulating well. Voiding without difficulty. Tolerating p.o. Lochia decreasing and appropriate. Pain is controlled with Tylenol and Motrin. OBJECTIVE: Vital Signs: T 99.2 F, HR 79, BP 107/52, RR 16. General: Alert, no acute distress, appropriate affect. Abdomen: Soft, appropriately tender, fundus firm, -1 umbilicus. Extremities: Nontender, no edema. Cardiac: RRR, no murmur noted. Respiratory: CTA bilaterally. LABORATORY DATA: Most recent labs on 09/26/2020 at 15:59; WBC 15.4, HGB 8.9, HCT 30.1, MCV 76.8. CBC this morning is pending for recheck on hemoglobin. HOSPITAL COURSE: The patient presented on 09/26/2020 in active labor. Labor was augmented with Pitocin. She was treated with Ancef per protocol following GBS positive status, which was adequately treated. She progressed to complete, pushed and delivered vaginally a viable female. score of 6 and 9 at 1 and 5 minutes respectively. Labor was complicated by uterine atony, which was managed with Pitocin IV per protocol and Cytotec 800 mg administered rectally. Tranexamic acid was also given. Due to excessive bleeding and appearance of multiple clots, bimanual uterine exam was also undertaken with finger uterine curettage passes x2, which resulted in removal of placental membranes and clots. Blood loss subsequently decreased substantially. Total blood loss estimated at 750 mL. Bilateral periurethral abrasions were noted and were not bleeding, which did not require repair. The patient is currently in good condition. Lochia has decreased and is appropriate. She would like to discharge home today. ASSESSMENT AND PLAN: Nima Cai is a G5, P3-1-1-3, status post vaginal delivery. 1. Maternal well-being: Meeting milestones. 2. well-being: With mother, bottle-feeding by formula. 3. Routine cares. Advance activity. Discharge home today on day #1, pending that hemoglobin and labs are stable this morning. MMR immunity equivocal. We will vaccinate prior to discharge. 4. Periurethral abrasions without bleeding, not requiring repair. Monitor clinically. 5. Discussed discharge plan: Patient verbalized understanding and is in agreement with plan DISCHARGE MEDICATIONS: 1. Recommend continuing with vitamin once daily. 2. Tylenol 325 mg, take 1 to 2 tablets every 4 to 6 hours as needed for pain. 3. Ibuprofen 400 mg p.o. every 4 to 6 hours as needed for pain. DISCHARGE DISPOSITION: Home. FOLLOWUP APPOINTMENT: Six weeks with Dr. Carmichael. seen and agreed with medical student. I examined the patient and agree with above and made changes accordingly TIM AngelesII MODL /[id number] MTDD
== END 2020-09-27 12:45 | disposition home or self-care (01) | DRG 806 ==
LOC: DL.OBCHECK 04:46 → DL.OB 05:54 → OBSVTOIN 10:33 → DL.OB 10:33
PROVIDERS: ADMIT Family Medicine; ATTEND Family Medicine
PROC: 10E0XZZ Delivery of Products of Conception, External Approach (ICD-10-PCS; principal; 2020-09-26)
PROC: 3E0R3BZ Introduction of Anesthetic Agent into Spinal Canal, Percutaneous Approach (ICD-10-PCS; 2020-09-26)
PROC: 00HU33Z Insertion of Infusion Device into Spinal Canal, Percutaneous Approach (ICD-10-PCS; 2020-09-26)
DX: O99.02 Anemia complicating childbirth (principal); O72.1 Other immediate postpartum hemorrhage; Z37.0 Single live birth; D64.9 Anemia, unspecified; Z3A.38 38 weeks gestation of pregnancy; O99.344 Other mental disorders complicating childbirth; F41.1 Generalized anxiety disorder; Z88.0 Allergy status to penicillin; Z86.16 Personal history of COVID-19; Z20.822 Contact with and (suspected) exposure to COVID-19; Z28.82 Immunization not carried out because of caregiver refusal
CPT/HCPCS: 01967; 36415; 51701; 59025; 59409; 81001; 84112; 85025; 85027; A9270-GY; J0690; J0696; J2590; J3010; J7120; U0002

== ENCOUNTER 2020-11-08 18:53 | Emergency (ER) | payer MEDICAID ==
[2020-11-08 19:36] LABS: ANION GAP 10.8 mEq/L (7-13); CHLORIDE,CL 104 mmol/L (98-107); SODIUM,NA 140 mmol/L (136-145)
[2020-11-08] MEDS ORDERED: Iopamidol 755 Mg/ML 100 ML Bottle IVPUSH ONE (20:58)
--- NOTE | 2020-11-08 22:27 | CT ---
PROCEDURE INFORMATION: Exam: CT Chest With Contrast; Diagnostic Exam date and time: 11/08/2020 9:50 PM Age: 25 years old Clinical indication: Dyspnea and other: D-dimer 613; Additional info: Dyspnea, elevated ddimer TECHNIQUE: Imaging protocol: Diagnostic computed tomography of the chest with contrast. Radiation optimization: All CT scans at this facility use at least one of these dose optimization techniques: automated exposure control; mA and/or kV adjustment per patient size (includes targeted exams where dose is matched to clinical indication); or iterative reconstruction. Contrast material: [id number]; Contrast volume: 82 ml; Contrast route: INTRAVENOUS (IV); COMPARISON: No relevant prior studies available. FINDINGS: Lungs: Unremarkable. No consolidation. No masses. Pleural spaces: Unremarkable. No pneumothorax. No pleural effusion. Heart: Unremarkable. No cardiomegaly. No pericardial effusion. Aorta: Unremarkable. No aortic aneurysm. Lymph nodes: Unremarkable. No enlarged lymph nodes. Bones/joints: Unremarkable. No acute fracture. Soft tissues: Unremarkable. IMPRESSION: No acute findings. There is no evidence for pulmonary emboli.
[2020-11-08] MEDS ORDERED: hydrOXYzine HCl 25 MG Tab PO ONE (22:30)
--- NOTE | 2020-11-08 22:33 | EDM.PDOC ---
ED HPI GENERAL MEDICAL PROBLEM - General Chief Complaint: Chest Pain Stated Complaint: CHEST, PAIN, DIZZY, SHORTNESS OF BREATH. Time Seen by Provider: 11/08/20 19:15 Source of Information: Reports: Patient History Limitations: Reports: No Limitations - History of Present Illness INITIAL COMMENTS - FREE TEXT/NARRATIVE: ED with c/o SOB, anxiety Seen in clinic today COVID done, negative. Hydroxyzine increased but did not take additional doses. Being around people or open spaces make sx worse. Worse with exertion. No nausea or vomiting. no fever or cough. - Related Data Allergies Allergy/AdvReac Type Severity Reaction Status Date / Time amoxicillin Allergy Airway Verified 11/08/20 19:08 Tightness diphenhydramine HCl Allergy Cannot Verified 11/08/20 19:08 [From Benadryl] Remember Penicillins Allergy Shortness Verified 11/08/20 19:08 of Breath Home Meds: Home Meds Sertraline [Zoloft] 50 mg PO DAILY 02/17/19 [History] hydrOXYzine HCL [Hydroxyzine HCl] 25 mg PO BID PRN 11/08/20 [History] Past Medical History - Past Health History Medical/Surgical History: Denies Medical/Surgical History HEENT History: Reports: None Cardiovascular History: Reports: None Respiratory History: Reports: None Gastrointestinal History: Reports: None Genitourinary History: Reports: Pyelonephritis, Other (See Below) Other Genitourinary History: UTI in [employer] History: Reports: , Spontaneous Other [employer] History: Musculoskeletal History: Reports: None Neurological History: Reports: None Psychiatric History: Reports: Addiction, Anxiety, Depression, Emotional Problems Endocrine/Metabolic History: Reports: Obesity/BMI 30+, Other (See Below) Other Endocrine/Metabolic History: abnormal TSH in Hematologic History: Reports: Anemia Immunologic History: Reports: None Oncologic (Cancer) History: Reports: None Dermatologic History: Reports: None - Infectious Disease History Infectious Disease History: Reports: Influenza - Past Surgical History Head Surgeries/Procedures: Reports: None Female Surgical History: Reports: D&C Social & Family History - Family History Family Medical History: No Pertinent Family History - Tobacco Use Tobacco Use Status *Q: Never Tobacco User - Caffeine Use Caffeine Use: Reports: Soda - Recreational Drug Use Recreational Drug Use: No - Living Situation & Occupation Living situation: Reports: with Family Occupation: Employed ED ROS GENERAL - Review of Systems Review Of Systems: Comprehensive ROS is negative, except as noted in HPI. ED EXAM, GENERAL - Physical Exam Exam: See Below Exam Limited By: No Limitations General Appearance: Alert, No Apparent Distress, Anxious Eye Exam: Bilateral Eye: EOMI Ears: Normal External Exam Nose: Normal Inspection Throat/Mouth: Normal Inspection Head: Atraumatic, Normocephalic Neck: Normal Inspection Respiratory/Chest: No Respiratory Distress, Lungs Clear, Normal Breath Sounds Cardiovascular: Normal Peripheral Pulses, Regular Rate, Rhythm GI/Abdominal: Normal Bowel Sounds, Soft, Non-Tender Extremities: Normal Inspection Neurological: Alert, Oriented, Normal Cognition Psychiatric: Anxious, Flat Affect Skin Exam: Warm, Dry, Intact, Normal Color Course - Vital Signs Last Recorded V/S: Last Vital Signs Temp 97.2 F 11/08/20 19:05 Pulse 65 11/08/20 22:36 Resp 20 11/08/20 22:36 BP 111/81 11/08/20 22:36 Pulse Ox 100 11/08/20 22:36 - Orders/Labs/Meds Labs: Laboratory Tests 11/08/20 11/08/20 11/08/20 Range/Units 19:00 19:00 19:00 WBC 9.2 (5.0-10.0) 10^3/uL RBC 4.51 (4.2-5.4) 10^6/uL Hgb 10.2 L (12.0-16.0) g/dL Hct 34.5 L (37.0-47.0) % MCV 76.5 L (80-100) fL MCH 22.6 L (27.0-34.0) pg MCHC 29.6 L (33.0-35.0) g/dL Plt Count 416 D (150-450) 10^3/uL Neut % (Auto) 68.4 (42.2-75.2) % Lymph % (Auto) 24.5 (20.5-50.1) % Hardy % (Auto) 5.8 (2-8) % Eos % (Auto) 1.1 (1.0-3.0) % Baso % (Auto) 0.2 (0.0-1.0) % D-Dimer, Quantitative 613 H (0-400) ng/mL Sodium 140 (136-145) mmol/L Potassium 3.8 (3.5-5.1) mmol/L Chloride 104 (98-107) mmol/L Carbon Dioxide 29 (21-32) mmol/L Anion Gap 10.8 (7-13) mEq/L BUN 13 (7-18) mg/dL Creatinine 0.66 (0.55-1.02) mg/dL Est Cr Clr Drug Dosing 121.98 mL/min Estimated GFR (MDRD) > 60 BUN/Creatinine Ratio 19.7 (No establ ref range) Glucose 93 (70-99) mg/dL Calcium 8.1 L (8.5-10.1) mg/dL Total Bilirubin 0.2 (0.2-1.0) mg/dL AST 11 L (15-37) U/L ALT 17 (14-59) U/L Alkaline Phosphatase 152 H (46-116) U/L Total Protein 7.7 (6.4-8.2) g/dL Albumin 3.4 (3.4-5.0) g/dL Globulin 4.3 Albumin/Globulin Ratio 0.8 HCG, Qual Negative Urine Opiates Screen (NEGATIVE) Ur Oxycodone Screen (NEGATIVE) Urine Methadone Screen (NEGATIVE) Ur Barbiturates Screen (NEGATIVE) U Tricyclic Antidepress (NEGATIVE) Ur Phencyclidine Scrn (NEGATIVE) Ur Amphetamine Screen (NEGATIVE) U Methamphetamines Scrn (NEGATIVE) Urine MDMA Screen (NEGATIVE) U Benzodiazepines Scrn (NEGATIVE) Urine Cocaine Screen (NEGATIVE) U Marijuana (THC) Screen (NEGATIVE) 11/08/20 Range/Units 22:17 WBC (5.0-10.0) 10^3/uL RBC (4.2-5.4) 10^6/uL Hgb (12.0-16.0) g/dL Hct (37.0-47.0) % MCV (80-100) fL MCH (27.0-34.0) pg MCHC (33.0-35.0) g/dL Plt Count (150-450) 10^3/uL Neut % (Auto) (42.2-75.2) % Lymph % (Auto) (20.5-50.1) % Hardy % (Auto) (2-8) % Eos % (Auto) (1.0-3.0) % Baso % (Auto) (0.0-1.0) % D-Dimer, Quantitative (0-400) ng/mL Sodium (136-145) mmol/L Potassium (3.5-5.1) mmol/L Chloride (98-107) mmol/L Carbon Dioxide (21-32) mmol/L Anion Gap (7-13) mEq/L BUN (7-18) mg/dL Creatinine (0.55-1.02) mg/dL Est Cr Clr Drug Dosing mL/min Estimated GFR (MDRD) BUN/Creatinine Ratio (No establ ref range) Glucose (70-99) mg/dL Calcium (8.5-10.1) mg/dL Total Bilirubin (0.2-1.0) mg/dL AST (15-37) U/L ALT (14-59) U/L Alkaline Phosphatase (46-116) U/L Total Protein (6.4-8.2) g/dL Albumin (3.4-5.0) g/dL Globulin Albumin/Globulin Ratio HCG, Qual Urine Opiates Screen Negative (NEGATIVE) Ur Oxycodone Screen Negative (NEGATIVE) Urine Methadone Screen Negative (NEGATIVE) Ur Barbiturates Screen Negative (NEGATIVE) U Tricyclic Antidepress Negative (NEGATIVE) Ur Phencyclidine Scrn Negative (NEGATIVE) Ur Amphetamine Screen Negative (NEGATIVE) U Methamphetamines Scrn Negative (NEGATIVE) Urine MDMA Screen Negative (NEGATIVE) U Benzodiazepines Scrn Negative (NEGATIVE) Urine Cocaine Screen Negative (NEGATIVE) U Marijuana (THC) Screen Negative (NEGATIVE) Meds: Medications Discontinued Medications Generic Name Dose Route Start Last Admin Trade Name Freq PRN Reason Stop Dose Admin Hydroxyzine HCl 25 mg 11/08/20 22:30 11/08/20 22:43 Hydroxyzine Hcl 25 Mg Tab PO 11/08/20 22:31 25 mg ONETIME ONE Administration Iopamidol 100 ml 11/08/20 20:58 11/08/20 21:21 Iopamidol 755 Mg/Ml 100 Ml Bottle IVPUSH 11/08/20 20:59 100 ml ONETIME ONE Administration Departure - Departure Time of Disposition: 22:30 Disposition: Home, Self-Care 01 Condition: Good Clinical Impression: Anxiety Dyspnea Qualifiers: Dyspnea type: unspecified Qualified Code(s): R06.00 - Dyspnea, unspecified - Discharge Information *PRESCRIPTION DRUG MONITORING PROGRAM REVIEWED*: No *COPY OF PRESCRIPTION DRUG MONITORING REPORT IN PATIENT SHELLIE: No Instructions: Managing Anxiety, Adult Referrals: Lars Vaca [Primary Care Provider] - Forms: ED Department Discharge Additional Instructions: Follow up next week with primary care Hydroxyzine 25mg twice daily decrease caffeine intake incese fluids for 24 hours Sepsis Event Note (ED) - Evaluation Sepsis Screening Result: No Definite Risk - Focused Exam Vital Signs: Vital Signs Temp Pulse Resp BP Pulse Ox 11/08/20 22:36 65 20 111/81 100 11/08/20 19:05 97.2 F 72 16 117/83 100
[2020-11-08 22:37] VITALS: BP 111/81; PULSE 65
== END 2020-11-08 22:39 | disposition home or self-care (01) ==
LOC: DL.ED 18:53
DX: F41.9 Anxiety disorder, unspecified (principal); Z88.0 Allergy status to penicillin; Z88.8 Allergy status to other drugs, medicaments and biological substances; Z79.899 Other long term (current) drug therapy
CPT/HCPCS: 36415; 71260; 80053; 80305-QW; 84703; 85025; 85379; 99283; 99285-25; A9270-GY; Q9967

== ENCOUNTER 2021-08-07 08:12 | Emergency (ER) | payer MEDICAID ==
[2021-08-07] MEDS ORDERED: Ondansetron 4 MG/2 ML SDV IV ONE (08:30)
[2021-08-07] MEDS ORDERED: Sodium Chloride 0.9% 1,000 ML IV ONE (08:30)
[2021-08-07] MEDS ORDERED: Sodium Chloride 0.9% 10 ML Syringe FLUSH PRN (08:30)
[2021-08-07 08:31] VITALS: BP 130/90; PULSE 87
[2021-08-07 09:08] LABS: ANION GAP 13.6 mEq/L (7-13); CHLORIDE,CL 101 mmol/L (98-107); SODIUM,NA 135 mmol/L (136-145)
[2021-08-07] MEDS ORDERED: Ketorolac 30 MG/ML SDV IVPUSH ONE (09:27)
[2021-08-07] MEDS ORDERED: Dicyclomine 10 MG Cap PO ONE (09:27)
[2021-08-07 09:36] LABS: CORONAVIRUS COVID-19 NAA NEGATIVE (NEGATIVE); RESPIRATORY SYNCYTIAL VIR NAA NEGATIVE (NEGATIVE)
== END 2021-08-07 10:03 | disposition home or self-care (01) ==
LOC: DL.ED 08:12
DX: N94.6 Dysmenorrhea, unspecified (principal); R19.7 Diarrhea, unspecified; E66.9 Obesity, unspecified; Z68.34 Body mass index [BMI] 34.0-34.9, adult; Z88.0 Allergy status to penicillin; Z88.8 Allergy status to other drugs, medicaments and biological substances; Z20.822 Contact with and (suspected) exposure to COVID-19
CPT/HCPCS: 0241U; 36415; 80053; 81001; 81025; 82150; 83690; 85025; 86140; 96374; 96375; 99284; A9270; J1885; J2405; J7030

== ENCOUNTER 2022-08-04 11:08 | Inpatient (IN) | payer MEDICAID ==
[2022-08-04] MEDS ORDERED: Lactated Ringers 1,000 ML IV ONE (12:44)
[2022-08-04] MEDS ORDERED: Acetaminophen 325 MG Tab PO PRN (12:44)
[2022-08-04] MEDS ORDERED: ceFAZolin 2 GM Vial IVPUSH ONE (12:44)
[2022-08-04] MEDS ORDERED: Misoprostol 400 MCG (4 X 100 MCG TAB) RECTAL PRN (12:44)
[2022-08-04] MEDS ORDERED: Lidocaine 1% 30 ML SDV INJECT PRN (12:44)
[2022-08-04] MEDS ORDERED: Carboprost Tromethamine 250 MCG/1 ML Amp IM PRN (12:44)
[2022-08-04] MEDS ORDERED: Sodium Chloride 0.9% 10 ML Syringe FLUSH PRN ×2 (12:44→20:15)
[2022-08-04] MEDS ORDERED: Tranexamic Acid 1,000 MG in Sodium Chloride 0.9% 100 ML IV PRN ×2 (12:44→15:51)
[2022-08-04] MEDS ORDERED: Methylergonovine 0.2 MG/1 ML Amp IM PRN (12:44)
[2022-08-04] MEDS ORDERED: Ondansetron 4 MG/2 ML SDV IVPUSH PRN (12:44)
[2022-08-04] MEDS ORDERED: Lactated Ringers 1,000 ML IV SCH (12:45)
[2022-08-04] MEDS ORDERED: ceFAZolin 1 GM in Sodium Chloride 0.9% 100 ML IV SCH (12:45)
[2022-08-04] MEDS ORDERED: EPINEPHrine 1 MG/ML SDV ONE (14:24)
[2022-08-04] MEDS ORDERED: Dexmedetomidine 200 MCG/2 ML SDV ONE (14:25)
[2022-08-04] MEDS: Oxytocin/Normal Saline 30 UNIT/500 ML BAG IV SCH ×2 (16:43→21:00)
[2022-08-04] MEDS ORDERED: Naloxone 2 MG/2 ML Syringe IVPUSH PRN (18:29)
[2022-08-04] MEDS ORDERED: ePHEDrine 50 MG/ML SDV IVPUSH PRN (18:29)
[2022-08-04] MEDS ORDERED: Benzocaine/Menthol 20%-0.5% Spray 78 GM Cannister TOP PRN (20:15)
[2022-08-04] MEDS ORDERED: Zolpidem 5 MG Tab PO PRN (20:15)
[2022-08-04] MEDS ORDERED: Oxytocin 10 Units/1 ML SDV IM PRN (20:15)
[2022-08-04] MEDS ORDERED: Docusate Sodium 100 MG Cap PO PRN (20:15)
[2022-08-04] MEDS ORDERED: Simethicone 80 MG Tab.Chew PO PRN (20:15)
[2022-08-04] MEDS ORDERED: cefTRIAXone 1 GM Vial IVPUSH ONE (21:15)
[2022-08-05] MEDS: Ferrous Sulfate 325 MG Tab PO SCH (07:06)
[2022-08-05] MEDS: Ibuprofen 800 MG Tab PO PRN ×2 (07:06→17:24)
[2022-08-05] MEDS: Prenatal Multivitamin with Calcium/Folic Acid/Iron Tab PO SCH ×2 (07:09→11:36)
[2022-08-05] MEDS: ceFAZolin 1 GM Vial IVPUSH SCH (07:19)
[2022-08-06 08:09] VITALS: BP 115/83; PULSE 73
[2022-08-06] MEDS: Prenatal Multivitamin with Calcium/Folic Acid/Iron Tab PO SCH (08:20)
[2022-08-06] MEDS: Ferrous Sulfate 325 MG Tab PO SCH (08:20)
[2022-08-06] MEDS: Ibuprofen 800 MG Tab PO PRN (08:23)
== END 2022-08-06 09:23 | disposition home or self-care (01) | DRG 806 ==
LOC: DL.OBCHECK 11:08 → DL.OB 12:51 → OBSVTOIN 19:45
PROVIDERS: ADMIT Family Medicine; ATTEND Family Medicine
PROC: 10E0XZZ Delivery of Products of Conception, External Approach (ICD-10-PCS; principal; 2022-08-04)
PROC: 10D17Z9 Manual Extraction of Products of Conception, Retained, Via Natural or Artificial Opening (ICD-10-PCS; 2022-08-04)
PROC: 10907ZC Drainage of Amniotic Fluid, Therapeutic from Products of Conception, Via Natural or Artificial Opening (ICD-10-PCS; 2022-08-04)
PROC: 10H07YZ Insertion of Other Device into Products of Conception, Via Natural or Artificial Opening (ICD-10-PCS; 2022-08-04)
DX: O99.824 Streptococcus B carrier state complicating childbirth (principal); Z3A.39 39 weeks gestation of pregnancy; Z37.0 Single live birth; D62 Acute posthemorrhagic anemia; O99.344 Other mental disorders complicating childbirth; O99.02 Anemia complicating childbirth; O69.81X0 Labor and delivery complicated by cord around neck, without compression, not applicable or unspecified; O62.2 Other uterine inertia; O73.1 Retained portions of placenta and membranes, without hemorrhage; F41.1 Generalized anxiety disorder; F32.9 Major depressive disorder, single episode, unspecified; Z20.822 Contact with and (suspected) exposure to COVID-19
CPT/HCPCS: 01967; 36415; 51701; 51703; 59025; 59409; 85027; A9270-GY; J0690; J0696; J2210; J2590; J3490; J7050; J7120; U0002

== ENCOUNTER 2022-11-27 18:33 | Emergency (ER) | payer MEDICAID ==
[2022-11-27] MEDS ORDERED: Sodium Chloride 0.9% 10 ML Syringe FLUSH PRN (19:14)
[2022-11-27 19:50] LABS: ANION GAP 11.6 mEq/L (7-13); CALCIUM 8.5 mg/dL (8.5-10.1); CREATININE 0.62 mg/dL (0.55-1.02); EST CRCL DRUG DOSING (CG) 132.54 mL/min; POTASSIUM,K 3.6 mmol/L (3.5-5.1)
[2022-11-27 20:19] VITALS: BP 101/60; PULSE 68
== END 2022-11-27 20:20 | disposition home or self-care (01) ==
LOC: DL.ED 18:33
DX: M25.512 Pain in left shoulder (principal); R07.89 Other chest pain; E66.9 Obesity, unspecified; Z68.38 Body mass index [BMI] 38.0-38.9, adult; Z86.16 Personal history of COVID-19; Z88.0 Allergy status to penicillin; Z88.8 Allergy status to other drugs, medicaments and biological substances; Z79.899 Other long term (current) drug therapy
CPT/HCPCS: 36415; 71046; 80048; 84484; 85379; 93005; 93010; 99284; 99285; J3490

== ENCOUNTER 2023-01-04 18:53 | Emergency (ER) | payer MEDICAID ==
[2023-01-04 21:10] VITALS: BP 128/91; PULSE 97
== END 2023-01-04 22:56 | disposition home or self-care (01) ==
LOC: DL.ED 18:53
DX: J02.9 Acute pharyngitis, unspecified (principal); E66.9 Obesity, unspecified; Z68.39 Body mass index [BMI] 39.0-39.9, adult; Z88.0 Allergy status to penicillin; Z88.8 Allergy status to other drugs, medicaments and biological substances; Z86.16 Personal history of COVID-19
CPT/HCPCS: 87081; 87430; 99282; 99284

== ENCOUNTER 2024-05-19 16:10 | Emergency (ER) | payer MEDICAID ==
[2024-05-19 16:10] VITALS: BP 132/85; PULSE 77
[2024-05-19] MEDS: LORazepam 0.5 MG Tab PO ONE (16:22)
[2024-05-19 16:28] LABS: BASOPHILS PERCENT AUTO 0.1 % (0.0-1.0); EOSINOPHILS PERCENT AUTO 1.4 % (1.0-3.0); HEMOGLOBIN 12.1 g/dL (12.0-16.0); LYMPHOCYTES PERCENT AUTO 31.5 % (20.5-50.1); MEAN CORPUSCULAR HEMOGLOBIN 25.6 pg (27.0-34.0); MEAN CORPUSCULAR VOLUME 82.5 fL (80-100); MONOCYTES PERCENT AUTO 4.8 % (2-8); NEUTROPHILS PERCENT AUTO 62.2 % (42.2-75.2); PLATELET COUNT,PLT 365 10^3/uL (150-450); RED BLOOD CELL COUNT 4.73 10^6/uL (4.2-5.4); WHITE BLOOD CELL COUNT,WBC 8.6 10^3/uL (5.0-10.0)
[2024-05-19 16:50] LABS: A/G RATIO 0.9; ALANINE AMINOTRANSFERASE,ALT 18 U/L (14-59); ALBUMIN 3.6 g/dL (3.4-5.0); ALKALINE PHOSPHATASE 137 U/L (46-116); ANION GAP 14.5 mEq/L (7-13); ASPARTATE AMNIOTRANSFERASE,AST 10 U/L (15-37); BILIRUBIN TOTAL 0.2 mg/dL (0.2-1.0); BLOOD UREA NITROGEN,BUN 7 mg/dL (7-18); BUN/CREATININE RATIO 11.5 (No establ ref range); CALCIUM 8.5 mg/dL (8.5-10.1); CARBON DIOXIDE,CO2 27 mmol/L (21-32); CHLORIDE,CL 104 mmol/L (98-107); CREATININE 0.61 mg/dL (0.55-1.02); EST CRCL DRUG DOSING (CG) 133.52 mL/min; ESTIMATED GFR 125 mL/min (>=60); GLUCOSE RANDOM 97 mg/dL (70-99); POTASSIUM,K 3.5 mmol/L (3.5-5.1); PROTEIN TOTAL,TP 7.6 g/dL (6.4-8.2); SODIUM,NA 142 mmol/L (136-145)
== END 2024-05-19 17:08 | disposition home or self-care (01) ==
LOC: DL.ED 16:10
DX: R07.89 Other chest pain (principal); F41.9 Anxiety disorder, unspecified; E66.9 Obesity, unspecified; Z86.16 Personal history of COVID-19; Z79.899 Other long term (current) drug therapy; Z88.0 Allergy status to penicillin; Z88.8 Allergy status to other drugs, medicaments and biological substances; Z68.37 Body mass index [BMI] 37.0-37.9, adult
CPT/HCPCS: 36415; 71045; 80053; 84484; 84703; 85025; 93005; 99285; A9270

== ENCOUNTER 2025-01-25 12:27 | Emergency (ER) | payer BC, MEDICAID ==
[2025-01-25 13:09] VITALS: BP 134/87; PULSE 84
== END 2025-01-25 13:04 | disposition home or self-care (01) ==
LOC: DL.ED 12:27
DX: Z71.1 Person with feared health complaint in whom no diagnosis is made (principal); E66.9 Obesity, unspecified; Z88.0 Allergy status to penicillin; Z88.8 Allergy status to other drugs, medicaments and biological substances; Z79.899 Other long term (current) drug therapy; Z86.16 Personal history of COVID-19; Z68.35 Body mass index [BMI] 35.0-35.9, adult
CPT/HCPCS: 99283